=== PATIENT | male | born 1985 | race Caucasian/White ===

== ENCOUNTER 2023-10-06 22:49 | Emergency (ER) | payer OTHER, SELFPAY ==
[2023-10-06] VITALS (8 sets, daily range): BP systolic 125–137; BP diastolic 82–92; PULSE 102–117; TEMP 36.8; O2SAT 98; BMI 25.0
--- NOTE | 2023-10-06 22:56 | ECG_ITS ---
[facility] Test Date: 2023-10-06 Pat Name: YASH JO Department: Room: - Gender: Male Press Loader: : 1985 Requested By: 1030 Order Number: [id number] Reading MD: CHAO RUELAS Measurements Intervals [place] Rate: 114 P: 69 MA: 162 QRS: 80 QRSD: 84 T: 66 QT: 326 QTc: 394 Interpretive Statements 1120 Sinus tachycardia 0102 ARTIFACT PRESENT 9140 abnormal rhythm ECG Electronically Signed On 10-07-2023 7:01:39 EDT by CHAO RUELAS
--- NOTE | 2023-10-06 22:58 | ED.PSYCH1 ---
HPI - Psych General Chief Complaint: Psychiatric Symptoms Stated Complaint: SUICIDAL Time Seen by Provider: 10/06/23 22:52 History of Present Illness HPI Narrative: 38-year-old male presents to the emergency department for suicidal thoughts. He ran from the police and they eventually caught him and they were going to take him to senior living and he told them that he was going to kill himself. He does not admit to doing anything to harm himself tonight. He is not forthcoming with information. He tells me he is going through a lot. Related Data Allergies Allergy/AdvReac Type Severity Reaction Status Date / Time No Known Drug Allergies Allergy Verified 10/06/23 22:58 Review of Systems ROS Narrative Not obtainable, not cooperative Exam Narrative Exam Narrative: Nurses note and vital signs reviewed and patient is not hypoxic. General: The patient appears in no apparent respiratory distress. He appears anxious. Skin: Warm, dry, no pallor noted. There is no rash noted. Head: Normocephalic, atraumatic Eye: Normal conjunctiva, no drainage, EOMI. PERRL Ears, Nose, Mouth, and Throat: oral mucosa is moist. Nares patent. Cardiovascular: Regular Rate and Rhythm Respiratory: Patient is in no distress, no accessory muscle use, lungs are clear to auscultation, no wheezing, rales or rhonchi Back: non-tender GI: Soft and nontender Musculoskeletal: No deformities. All joints have good range of motion Neurological: Awake and alert. Occasionally he has mumbling speech. Psychiatric: Not fully cooperative Constitutional Vital Signs, click to edit/add: Last Vital Signs Temp 98.2 F 10/06/23 22:53 Pulse 102 H 10/06/23 23:40 Resp 18 10/06/23 23:20 BP 125/82 10/06/23 23:07 Pulse Ox 98 10/06/23 22:54 O2 Del Method Room Air 10/06/23 22:53 Course Vital Signs Vital signs: Vital Signs Temperature 98.2 F 10/06/23 22:53 Pulse Rate 116 H 10/06/23 22:53 Respiratory Rate 22 H 10/06/23 22:53 Blood Pressure 137/92 H 10/06/23 22:53 Pulse Oximetry 98 10/06/23 22:53 Oxygen Delivery Method Room Air 10/06/23 22:53 Temperature 98.2 F 10/06/23 22:53 Pulse Rate 102 H 10/06/23 23:40 Respiratory Rate 18 10/06/23 23:20 Blood Pressure 125/82 10/06/23 23:07 Pulse Oximetry 98 10/06/23 22:54 Oxygen Delivery Method Room Air 10/06/23 22:53 MDM - Psych MDM Narrative Medical decision making narrative: Blood work is negative including an immeasurable alcohol level. We have contacted mental health services and the police are here with the patient. We have agreed that the patient will be taken to senior living with a suicide watch. Differential Diagnosis Differential diagnosis: Likely suicidal ideation, depression and acute anxiety Lab Data Attestation: I reviewed the patient's lab results. Labs: Lab Results 10/06/23 Range/Units 23:08 WBC 9.5 (4.0-11.0) 10^3/uL RBC 5.00 (4.70-6.10) 10^6/uL Hgb 15.4 (14.0-18.0) g/dL Hct 44.6 (42.0-54.0) % MCV 89.2 (80.0-94.0) fL MCH 30.8 (25.9-34.0) pg MCHC 34.5 (29.9-35.2) g/dL RDW 12.4 (11.0-15.0) % Plt Count 250 (150-450) 10^3/uL MPV 9.9 (9.5-13.5) fL Neut % (Auto) 68.3 (43.0-75.0) % Lymph % (Auto) 23.2 (20.5-60.0) % Mower % (Auto) 7.1 (1.7-12.0) % Eos % (Auto) 0.7 L (0.9-7.0) % Baso % (Auto) 0.6 (0.2-2.0) % Neut # (Auto) 6.5 (1.4-6.5) 10^3/uL Lymph # (Auto) 2.2 (1.2-3.8) 10^3/uL Mower # (Auto) 0.7 (0.3-0.8) 10^3/uL Eos # (Auto) 0.1 (0.0-0.7) 10^3/uL Baso # (Auto) 0.1 (0.0-0.1) 10^3/uL Abs Immat Gran (auto) 0.01 (0.00-0.03) 10^3/uL Imm/Tot Granulo (auto) 0.1 (0.0-0.5) % Sodium 140 (136-145) mmol/L Potassium 3.8 (3.5-5.1) mmol/L Chloride 101 (98-107) mmol/L Carbon Dioxide 26.4 (21.0-32.0) mmol/L Anion Gap 16.4 BUN 27.0 H (7.0-18.0) mg/dL Creatinine 1.25 (0.70-1.30) mg/dL Est GFR ( Amer) >60 (>=60) Est GFR (Non-Af Amer) >60 (>=60) BUN/Creatinine Ratio 21.6 Glucose 115 H (74-106) mg/dL Calcium 9.2 (8.5-10.1) mg/dL Salicylates 3.0 (<=19.9) mg/dL Acetaminophen <2.0 L (10.0-30.0) ug/mL Ethanol Quant <3 mg/dL ECG Data Attestation: I personally reviewed and interpreted this ECG as follows: (EKG on my interpretation shows sinus rhythm with a rate of 114 and no acute change.) Discharge Plan Discharge Stand Alone Forms: Portal Instructions Chief Complaint: Psychiatric Symptoms Clinical Impression: Suicidal ideation Patient Disposition: Home, Self-Care Time of Disposition Decision: 00:00 Condition: Good Mode of Transportation: Private Vehicle Print Language: Peruvian Instructions: Suicide Prevention (ED) Referrals: Physician,Non-Staff, MD [Primary Care Provider] - 1 week
[2023-10-06 23:13] LABS: Basophils Absolute Auto 0.1 10^3/uL (0.0-0.1); Basophils Percent Auto 0.6 % (0.2-2.0); Eosinophils Absolute Auto 0.1 10^3/uL (0.0-0.7); Eosinophils Percent Auto 0.7 % (0.9-7.0); Hematocrit 44.6 % (42.0-54.0); Hemoglobin 15.4 g/dL (14.0-18.0); Immature Granulocytes Abs Auto 0.01 10^3/uL (0.00-0.03); Immature Granulocytes Pct Auto 0.1 % (0.0-0.5); Lymphocytes Absolute Auto 2.2 10^3/uL (1.2-3.8); Lymphocytes Percent Auto 23.2 % (20.5-60.0); Mean Corpuscular HGB Conc 34.5 g/dL (29.9-35.2); Mean Corpuscular Hemoglobin 30.8 pg (25.9-34.0); Mean Corpuscular Volume 89.2 fL (80.0-94.0); Mean Platelet Volume 9.9 fL (9.5-13.5); Monocytes Absolute Auto 0.7 10^3/uL (0.3-0.8); Monocytes Percent Auto 7.1 % (1.7-12.0); Neutrophils Absolute Auto 6.5 10^3/uL (1.4-6.5); Neutrophils Percent Auto 68.3 % (43.0-75.0); Platelet Count 250 10^3/uL (150-450); Red Cell Distribution Width 12.4 % (11.0-15.0); White Blood Count 9.5 10^3/uL (4.0-11.0)
[2023-10-06 23:25] LABS: Anion Gap 16.4; BUN Creatinine Ratio 21.6; Calcium 9.2 mg/dL (8.5-10.1); Carbon Dioxide 26.4 mmol/L (21.0-32.0); Chloride 101 mmol/L (98-107); Estimated GFR (African America >60 (>=60); Estimated GFR (Non-African Ame >60 (>=60); Ethanol <3 mg/dL; Glucose 115 mg/dL (74-106); Potassium 3.8 mmol/L (3.5-5.1); Sodium 140 mmol/L (136-145)
[2023-10-06 23:32] LABS: Acetaminophen <2.0 ug/mL (10.0-30.0)
== END 2023-10-07 00:07 ==
PROVIDERS: Emergency Provider Emergency Medicine
DX: R45.851 Suicidal ideations (principal)
CPT/HCPCS: 36415; 80048; 80179; 80307; 80320; 80329; 81001; 85025; 93005; 99284

== ENCOUNTER 2025-02-18 17:40 | Emergency (ER) | payer OTHER, SELFPAY ==
[2025-02-18] VITALS (43 sets, daily range): BP systolic 101–156; BP diastolic 65–103; PULSE 80–123; TEMP 36.9; O2SAT 92–100; BMI 20.8
--- NOTE | 2025-02-18 17:46 | ECG_ITS ---
[facility] Test Date: 2025-02-18 Pat Name: YASH JO Department: Room: - Gender: Male Retail Support Specialist: : 1985 Requested By: Order Number: [id number] Reading MD: FANTA MELCHOR M.D. Measurements Intervals [place] Rate: 87 P: 77 IA: 162 QRS: 87 QRSD: 88 T: 65 QT: 358 QTc: 403 Interpretive Statements 1100 Sinus rhythm 2420 RSR (QR) in lead V1/V2, consistent with right ventricular conduction delay 9130 borderline ECG Compared to ECG 10/06/2023 23:05:50 Sinus tachycardia no longer present Electronically Signed On 02-18-2025 20:25:22 EST by FANTA MELCHOR M.D.
--- NOTE | 2025-02-18 17:47 | ED.GENADUL1 ---
HPI HPI - General Adult General Chief complaint: Overdose Stated complaint: overdose Time Seen by Provider: 02/18/25 17:45 History of Present Illness HPI narrative: 39-year-old male presented to the emergency department for taking too much hydroxyzine. He is unable to provide any history. All the initial history is obtained from the paramedics who transported him here. They reported that his family told them he has been taking more than he was prescribed over the last few days and he has been drowsy. They could not ascertain intent. No further history is obtainable. Related Data Allergies Allergy/AdvReac Type Severity Reaction Status Date / Time No Known Drug Allergies Allergy Verified 02/18/25 17:44 Review of Systems ROS Narrative Not obtainable PFSH PFSH Social History Little interest or pleasure in doing things: not at all Feeling down, depressed, or hopeless: not at all Exam Narrative Exam Narrative: Nurses note and vital signs reviewed General:The patient appears no acute respiratory distress. He is quite drowsy Skin:Warm, dry, no pallor noted.There is no rash noted. Head:Normocephalic, atraumatic Eye: Normal conjunctiva, no drainage Ears, Nose, Mouth, and Throat: oral mucosa is moist. Nares patent. Cardiovascular:Regular Rate and Rhythm Respiratory:Patient is in no distress, no accessory muscle use, lungs are clear to auscultation, no wheezing, rales or rhonchi Back:non-tender GI: Soft and nontender Musculoskeletal: The patient has no evidence of calf tenderness, no pitting edema, symmetrical pulses noted bilaterally Neurological: He is sleeping. He will say a few words when spoken to. Psychiatric: Not uncooperative Constitutional Vital Signs, click to edit/add: Last Vital Signs Temp 98.4 F 02/18/25 17:44 Pulse 88 02/18/25 17:44 Resp 18 02/18/25 17:44 BP 106/74 02/18/25 17:44 Pulse Ox 98 02/18/25 17:44 O2 Del Method Room Air 02/18/25 17:44 Course Vital Signs Vital signs: Vital Signs Temperature 98.4 F 02/18/25 17:44 Pulse Rate 88 02/18/25 17:44 Respiratory Rate 18 02/18/25 17:44 Blood Pressure 106/74 02/18/25 17:44 Pulse Oximetry 98 02/18/25 17:44 Oxygen Delivery Method Room Air 02/18/25 17:44 Temperature 98.4 F 02/18/25 17:44 Pulse Rate 88 02/18/25 17:44 Respiratory Rate 18 02/18/25 17:44 Blood Pressure 106/74 02/18/25 17:44 Pulse Oximetry 98 02/18/25 17:44 Oxygen Delivery Method Room Air 02/18/25 17:44 Medical Decision Making MDM Narrative Medical decision making narrative: Tests are ordered and the patient signed out to Dr. Killian at change of shift. Differential Diagnosis Differential Diagnosis: Unintentional overdose, intentional overdose ECG Data Attestation: I personally reviewed and interpreted this ECG as follows: (EKG on my interpretation shows sinus rhythm with rate of 87 and no acute change) Discharge Plan Discharge Patient Disposition: Still a Patient
[2025-02-18 17:57] LABS: Hematocrit 37.9 % (42.0-54.0); Hemoglobin 12.8 g/dL (14.0-18.0); Immature Granulocytes Abs Auto 0.03 10^3/uL (0.00-0.03); Immature Granulocytes Pct Auto 0.5 % (0.0-0.5); Lymphocytes Absolute Auto 1.9 10^3/uL (1.2-3.8); Mean Corpuscular HGB Conc 33.8 g/dL (29.9-35.2); Mean Corpuscular Hemoglobin 29.1 pg (25.9-34.0); Mean Corpuscular Volume 86.1 fL (80.0-94.0); Platelet Count 251 10^3/uL (150-450); Red Blood Count 4.40 10^6/uL (4.70-6.10); White Blood Count 6.2 10^3/uL (4.0-11.0)
--- OUTSIDE RECORDS SUMMARY | 2025-02-18 18:08 | XMS_ITS | Clinical Summary ---
Author Organization [facility] Address [address] [place] [address] Care Team Providers Care Filter Worker Name Role Phone Unavailable Primary Care Provider Unavailabl e Social History Tobacco UseTypesPacks/DayYears UsedDateSmoking Tobacco: Never AssessedSex and Gender InformationValueDate RecordedSex Assigned at BirthNot on fileLegal Sex Male05/05/2022 8:13 PM EDTGender IdentityNot on fileSexual OrientationNot on file Plan of Treatment Not on file
--- OUTSIDE RECORDS SUMMARY | 2025-02-18 18:08 | XMS_ITS | Clinical Summary ---
Author Organization [facility] Address [address] [place] [address] Phone Care Team Providers Care Shop Superintendent Name Role Phone Unavailable Primary Care Provider Unavailabl e Social History Tobacco UseTypesPacks/DayYears UsedDateSmoking Tobacco: Never AssessedSex and Gender InformationValueDate RecordedSex Assigned at BirthNot on fileLegal Sex Male01/15/2022 5:57 PM ESTGender IdentityNot on fileSexual OrientationNot on file Plan of Treatment Not on file
--- OUTSIDE RECORDS SUMMARY | 2025-02-18 18:08 | XMS_ITS | Patient Health Record ---
Author Organization [facility] Address [address], [place] [id number] Care Team Providers Care Obstetrician/Gynecologist Name Role Phone Tariq King Unavailable [phone] Allergies Allergen (clinical drug ingredient) Drug/Non Drug Allergy documented on EMR Reaction Allergy Type Onset Date Status Milk-related CompoundsComments: GI ISSUESDrug AllergyActive Reason For Referral No Information Medications Medication SIG (Take, Route, Frequency, Duration) Notes Start Date End Date Status Multivitamin - Tablet 1 tablet Orally Once a day ActivetraZODone HCl 100 MG Tablet1 tablet at bedtime Orally Once a day; Duration: 30 daysActivebusPIRone HCl 10 MG Tablet1 tablet Orally Three times a day; Duration: 30 daysActiveGabapentin 300 MG Capsule1 capsule Orally Once a day; Duration: 30 daysOARRS reviewed without issue07/07/2022ctive Cyclobenzaprine HCl 10 MG Tablet1 tablet as needed Orally Once a day; Duration: 30 daysActiveTriamcinolone Acetonide 0.1 % Cream1 application to affected area Externally Twice a day; Duration: ctive Social History Tobacco Use: Social History Observation Description Date Details (start date - stop date) Never Smoker NA - NA Sex Assigned At : Social History Observation Description Sex Assigned At Male Social History Household:Social InfoQuestionAnswerNotesHouseholdNumber of adults in household:1 Drugs/Alcohol/Caffeine:Social InfoQuestionAnswerNotesDrugsHave you used drugs other than those for medical reasons in the past 12 months?YesOpioidsCaffeine Intake:1-2 cups per dayTobacco Use:Social InfoQuestionAnswerNotesTobacco Use/SmokingTobacco use:nonsmokerTobacco use other than smoking:Are you an other tobacco user?YesVapeAdditional DetailsCategorySocial InfoOptionsDetails Miscellaneous:Occupation:unemployedCulture/Language BarrierNoEducation Level Grade 7-12Barriers to LearningNoneLearning PreferenceDoing or practicing , Watching a video, Reading, Talking in a small groupHow often do you need to have someone help you read instructionsNeverSafetyPatient feels safe in relationships YesDrugs/Alcohol/Caffeine:Do you drink alcohol?Socially Problems Problem Type SNOMED Code ICD Code Onset Dates Problem Status W/U Status Risk Notes Problem Anxiety (49058975) Anxiety (F41.9) ActiveconfirmedProblemInsomnia (645193993)Insomnia, unspecified type (G47.00) ActiveconfirmedProblemNeck pain (18222281)Neck pain, chronic (723.1) (M54.2) Activeconfirmed Comment:Musculoskeletal in nature, no neuro deficit. Ongoing for 8 years per patient, has full ROM on exam No muscle atrophy present Also with reports of thoracic burning that radaites up over his head. Pt feels this is infectious, advised possibe more rheumatological Agreed to ID referal at this time. Discussed case in full with collaborating physician, ProblemSuicidal ideation (0993175)Suicidal ideation (R45.851)Activeconfirmed Comment:Pt became tearful and frustrated during exam Stated he just wants to end things as he's tired of living this way; has written goodbye's to his children Admitted to having a plan, would not elaborate further to provider. Discussed treatment options for his neck pain and his expectations agreed he ritika not harm himself is there was a light at the end of the tunnel , ProblemNeck pain (81236161)Neck pain, musculoskeletal (723.1) (723.1)Active confirmedComment:Minor changes on plain films. With associated muscle spasms, paresthesias. He insists on getting an MRI. I discussed with him the option of giving him a referral (neuro, ortho) first but he opts for first getting the MRI. Meanwhile, continue the cyclobenzaprine prn and will try fioricet to see if that helps. Follow up after the MRI.,ProblemTemporomandibular joint disorder (44427462)TMJ (temporomandibular joint disorder) (524.60) (524.60)Active confirmedComment:Jaw films.,ProblemLumbar radiculopathy (352535804)Acute left lumbar radiculopathy (M54.16)Activeconfirmed Comment:With L4,5 and L5, S1 disc space narrowing and sciatica; some motor weakness and diminished LEFT ankle DTR; needs an MRI to see if he has a herniated disc, will concurrently refer to Pain Mgmt for nerve root injections as I think those will help. Rx hydrocodone every 12-24 hrs, start gabapentin and continue diclofenac, skelaxin., ProblemInsomnia (364090643)Cannot sleep (G47.00)ActiveconfirmedComment:STOP doxepin; START zolpidem 5-10mg QHS,Description:InsomniaProblemAnxiety state (296838552)Anxiety state (F41.1)ActiveconfirmedComment:Related in part, to his neck pain, insomnia. Will try the doxepin for sleep.,ProblemMyalgia (39570528) Myalgia (M79.10)ActiveconfirmedProblemSpasmodic torticollis (36932800) Torticollis, spasmodic (333.83) (333.83)ActiveconfirmedComment:Discussed options; he requests referral to neurology, rather than a muscle relaxer., Plan Of Treatment No Information Insurance Providers Payer Name Payer Address Payer Phone Subscriber Number Group Number Insured Name Patient Relationship to Insured Coverage Start Date Coverage End Date [facility] [address] [place] [address] [id number] Arnoldo Johnson - patient is the [id number] 2021Medicaid [facility] [place] [id number], MichaelSelf - patient is the insured 2021[employer]amount [facility] [address] [place] [phone] [id number], MichaelSelf - patient is the [id number] 2011 2014Medicaid[address] [place], [place] [id number], MichaelSelouisasusannah - patient is the [id number] Medical (General) History Medical History History ICD Code No Known Problems Surgical History Surgery Date(Month/Year) lumbar surgery finger surgery
--- OUTSIDE RECORDS SUMMARY | 2025-02-18 18:08 | XMS_ITS | Clinical Summary ---
Author Organization [facility] Address [id number] [address] [place] [address] Care Team Providers Care Seed Sales Manager Name Role Phone No Pcp, No Pcp Primary Care Provider Unavailabl e Allergies Active AllergyReactionsCriticalityNoted ApajHaywdsutFhcphvw46/26/2016 Medications * This document contains information received from the source organization and may not represent a complete record from that organization. MedicationSigDispense QuantityRefillsLast FilledStart DateEnd DateStatus CEPHalexin (KEFLEX) 500 mg capsule Take 500 mg by mouth 2 (two) times a day.Active sulfamethoxazole-trimethoprim (BACTRIM DS) 800-160 mg per tablet Take 1 tablet by mouth 2 (two) times a day.Active Active Problems ProblemNoted DateDiagnosed DatePsychotic vfnrakjb41/26/2016Alcohol dependence 07/17/2015 Family History Medical HistoryRelationNameCommentsDiabetesFatherRelationNameStatusComments Father Social History Tobacco UseTypesPacks/DayYears UsedDateSmoking Tobacco: Every DayCigarettes Smokeless Tobacco: Never Tobacco Cessation:Ready to Q uit: Not Asked; Counseling Given: Not Answered Alcohol UseStandard Drinks/WeekCommentsYes0 (1 standard drink = 0.6 oz pure alcohol)1-2 16oz/dayChildcareAnswerDate PdgbwkmkUxkvpvmsaPvhspqg78/12/2019 EmploymentAnswerDate IhcotechRmufrjxpvwGqsqzto37/12/2019Hunger ScreeningAnswer Date RecordedWithin the past 12 months we worried whether our food would run out before we got money to buy more.Never True02/19/2023Within the past 12 months the food we bought just didn't last and we didn't have money to get more.Never True3Purpose - LifeAnswerDate RecordedPurpose and direction in life Tktczkd4204/03/2020ex and Gender InformationValueDate RecordedSex Assigned at BirthNot on fileLegal SnfOuew4709/26/2014 11:24 AM EDTGender IdentityNot on file Sexual OrientationNot on file Last Filed Vital Signs Vital SignReadingTime TakenCommentsBlood Fkrbkpqq883/7802/19/2023 11:50 AM EST Lpivl471202/19/2023 11:50 AM USPCgedrxkbczw95.3 ??C (99.2 ??F)02/19/2023 11:50 AM ESTRespiratory Mjuz1262 11:50 AM ESTOxygen Mptpwyirtj29%02/19/2023 11:50 AM ESTInhaled Oxygen Concentration--Fkapfj95.7 kg (153 lb 9.6 oz)02/19/2023 11:50 AM DMGXvrjom385.1 cm (5' 5 )02/19/2023 11:50 AM ESTBody Mass Index25.56 02/19/2023 11:50 AM EST Plan of Treatment Health MaintenanceDue DateLast DoneCommentsDepression Gfwchhcio10/17/1997Adult BMI Rjfjeusuj59Tobacco Qnuruckdi81Influenza Hdwypdl9410/22/2024DTaP,Tdap and Td Vaccines (2 - Tdap) Medical Devices Not on file Insurance [address] [place] [address] * Guarantor: [facility] TypeRelation to PatientDate of PhoneBilling AddressCorporateOther [address] [place] [address] Care Teams Team MemberRelationshipSpecialtyStart DateEnd Date No Pcp, No Pcp SUE Sánchez [address] [facility] Srevfrjs54/9/21
--- OUTSIDE RECORDS SUMMARY | 2025-02-18 18:09 | XMS_ITS | CCD ---
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 Indra Henry DO 05/06/24 Final resultNormalAccess Hospital DaytonXR Chest 2 Viewson 05-06-2024 No acute abnormality. [facility] RIS CONSOLIDATEDEXAMINATION: TWO XRAY VIEWS OF THE CHEST 05/06/2024 10:44 am COMPARISON: 03/09/2024 HISTORY: ORDERING SYSTEM PROVIDED HISTORY: cough TECHNOLOGIST PROVIDED HISTORY: cough FINDINGS: The lungs are clear. Normal cardiomediastinal silhouette. No pleural effusion or pneumothorax. No acute osseous abnormality. [facility] CONSOLIDATEDIdnra Henry DO - 05/06/2024 EXAMINATION: TWO XRAY VIEWS OF THE CHEST 05/06/2024 10:44 am COMPARISON: 03/09/2024 HISTORY: ORDERING SYSTEM PROVIDED HISTORY: cough TECHNOLOGIST PROVIDED HISTORY: cough FINDINGS: The lungs are clear. Normal cardiomediastinal silhouette. No pleural effusion or pneumothorax. No acute osseous abnormality. IMPRESSION: No acute abnormality. [facility] HospitalRadiology Study observation (narrative)[facility] HospitalXR Chest 2 ViewsOrdered By: Indra Henry on [id number] Giles Memorial Hospital Work Phone: ProtoporphyqueZincon [phone] to Heme Ratio44 umolZPP/molHemNormal0-69MerTorrance Memorial Medical CenterComment on above:Result Comment: (NOTE) INTERPRETIVE INFORMATION: Zinc Protoporphyrin (ZPP) WholeBld Ratio This test was performed on the ProtoFluor Z system manufactured by [employer]. The result is not comparable to results obtained from extraction-based methods or from the [employer] ZPP system. The test was developed and its performance characteristics determined by [facility]. It has not been cleared or approved by the U.S. Food and Drug Administration. This test was performed in a CLIA-certified laboratory and is intended for clinical purposes. Performed By: [facility] [address] [place] [address] Lumber Tailer: Maged Novak MD, PhD CLIA Number: [id number] By: #### TROPI, CDP, BMP #### [facility] [place] [address] Coach Builder: Eliecer Dozier [facility] SEMINOLEium, Bloodon [id number], Blood<1.0 Normal<=5.0Access Hospital DaytonComment on above:Result Comment: (NOTE) INTERPRETATION INFORMATION: Cadmium, Blood Elevated results may be due to skin or collection-related contamination, including the use of a noncertified metal-free collection/transport tube. If contamination concerns exist due to elevated levels of blood cadmium, confirmation with a second specimen collected in a certified metal-free tube is recommended. Blood cadmium levels can be used to monitor acute toxicity and in combination with cadmium urine and B-2 microglobulin is the preferred method for monitoring occupational exposure. Symptoms associated with cadmium toxicity vary based upon route of exposure and may include tubular proteinuria, fever, headache, dyspnea, chest pain, conjunctivitis, rhinitis, sore throat and cough. Ingestion of cadmium in high concentration may cause vomiting, diarrhea, salivation, cramps, and abdominal pain. This test was developed and its performance characteristics determined by [facility]. It has not been cleared or approved by the [place] Food and Drug Administration. This test was performed in a CLIA certified laboratory and is intended for clinical purposes. Performed By: [facility] [address] [place] [address] Lumber Tailer: Maged Novak MD, PhD [facility] Number: [id number] By: #### CREG, PSAS, BUN, CDP #### [address] [address] Coach Builder: Eliecer Dozier MD #### ALEBREE, AZP, ACADM #### [address] [id number] Coach Builder: Pato Priest, Urineon [id number], Ur /vol<1.0 Normal0.0-1.0Access Hospital DaytonComment on above:Result Comment: (NOTE) INTERPRETATION INFORMATION: Cadmium, Urine Urine cadmium levels can be used to assess cadmium body burden. In chronic exposures, the kidneys are the primary target organ. Symptoms associated with cadmium toxicity vary based upon route of exposure and may include tubular proteinuria, fever, headache, dyspnea, chest pain, conjunctivitis, rhinitis, sore throat and cough. Ingestion of cadmium in high concentration may cause vomiting, diarrhea, salivation, cramps, and abdominal pain. This test was developed and its performance characteristics determined by [facility]. It has not been cleared or approved by the US Food and Drug Administration. This test was performed in a CLIA certified laboratory and is intended for clinical purposes.Performed By: #### TROPI, CDP, BMP #### [facility] [address] [place] [address] Coach Builder: BRADFORD Auadmium, Urine /24hNot ApplicableNormal0.0-3.2 Access Hospital DaytonComment on above:Performed By: #### TROPI, CDP, BMP #### [facility] [address] [place] [address] Coach Builder: Eliecer Madoff, MDCadmium,Ur ratio/crNot ApplicableNormal0.0-3.2 Access Hospital DaytonComment on above:Result Comment: (NOTE) Unable to accurately calculate the creatinine normalized result due to a low per volume result.Performed By: #### ANALILIA REN, BMP #### [facility] [address] [place] [address] Coach Builder: Kyra Au Ur/24hNot [id number] Access Hospital DaytonComment on above:Result Comment: (NOTE) Performed By: [facility] [address] [place] [address] Lumber Tailer: Maged Novak MD, PhD CLIA Number: [id number] By: #### ANALILIA REN, BMP #### [facility] [address] [place], [place] [phone] Coach Builder: Kyra Au Ur/vol12 mg/dLNormalAccess Hospital DaytonComment on above:Performed By: #### ANALILIA REN, BMP #### [facility] [address] [place], [place] [phone] Coach Builder: Navi Au,Bloodon 94-97-1027Mcag<2.0Normal<=4.9Access Hospital DaytonComment on above:Result Comment: (NOTE) INTERPRETIVE INFORMATION: Lead, Blood (Venous) Analysis performed by Inductively Coupled Plasma-Mass Spectrometry (ICP-MS). Elevated results may be due to skin or collection-related contamination, including the use of a noncertified lead-free tube. If contamination concerns exist due to elevated levels of blood lead, confirmation with a second specimen collected in a certified lead-free tube is recommended. Information sources for blood lead reference intervals and interpretive comments include the CDC's Childhood Lead Poisoning Prevention: Recommended Actions Based on Blood Lead Level and the Adult Blood Lead Epidemiology and Surveillance: Reference Blood Lead Levels (BLLs) for Adults in the [place] Thresholds and time intervals for retesting, medical evaluation, and response vary by state and regulatory body. Contact your State Department of Health and/or applicable regulatory agency for specific guidance on medical management recommendations. This test was developed and its performance characteristics determined by [facility]. It has not been cleared or approved by the U.S. Food and Drug Administration. This test was performed in a CLIA-certified laboratory and is intended for clinical purposes. Group Concentration Comment Children 3.5-19.9 ug/dL Children under the age of 6 years are the most vulnerable to the harmful effects of lead exposure. Environmental investigation and exposure history to identify potential sources of lead. Biological and nutritional monitoring are recommended. Follow-up blood lead monitoring is recommended. 20-44.9 ug/dL Lead hazard reduction and prompt medical evaluation are recommended. Contact a Pediatric Environmental Health Specialty Unit or poison control center for guidance. Greater than Critical. Immediate medical 44.9 ug/dL evaluation, including detailed neurological exam is recommended. Consider chelation therapy when symptoms of lead toxicity are present. Contact a Pediatric Environmental Health Specialty Unit or poison control center for assistance. Adult 5-19.9 ug/dL Medical removal is recommended for women or those who are trying or may become . Adverse health effects are possible. Reduced lead exposure and increased blood lead monitoring are recommended. 20-69.9 ug/dL Adverse health effects are indicated. Medical removal from lead exposure is required by OSHA if blood lead level exceeds 50 ug/dL. Prompt medical evaluation is recommended. Greater than Critical. Immediate medical 69.9 ug/dL evaluation is recommended. Consider chelation therapy when symptoms of lead toxicity are present. Performed By: [facility] [address] [place] [address] Lumber Tailer: Maged Novak MD, PhD CLIA Number: [id number] By: #### CREG, PSAS, BUN, CDP #### [facility] [place] [phone] Coach Builder: Eliecer Dozier MD #### MONISHA FRANCIS, GABRIELAM #### [facility] [address] [place] [address] Coach Builder: Tomas Diaz MDBeta-2 Microglob,Uon [id number]-2 Microg ug/g c62 ug/g CRTNormal0-300[facility] Hospitalcy [facility] Medical CenterComment on above: Performed By: #### ANALILIA REN, BMP #### [facility] [address] [place] [address] Coach Builder: Eliecer Dozier MDBeta-2 Microglob,U8 ug/LNormal0-300Access Hospital DaytonComment on above:Performed By: #### ANALILIA REN, BMP #### [facility] [address] [place], [place] [phone] Coach Builder: BRADFORD Aureatinine [Mass/Vol]13 mg/dLNormalAccess Hospital DaytonComment on above:Result Comment: (NOTE) Performed By: [facility] [address] [place] [address] Lumber Tailer: Maged Novak MD, PhD CLIA Number: [id number] By: #### ANALILIA REN, BMP #### [facility] [address] [place], [place] [phone] Coach Builder: Nithya AuH (Bld)6.0 [pH][facility] Shelby HospitalComment on above:Performed By: #### ANALILIA REN, BMP #### [facility] [address] [place] [address] Coach Builder: Eliecer Dozier MDPYEtnb-8-Hkqvmwblawjfb Random Urineon 03-11-2024 Beta 2 Microglobulin ug/g MNQ31Eyv SecMetroHealth Main Campus Medical CenterBeta-2 Microglob.,U8 ug/L 0 - 300 ug/LBon Secours [facility] HospitalAblative Solutions HealthCreatinine (24H U) [Mass/Vol]13 mg/dLBon Secours Berger HospitalComment on above:(NOTE) Performed By: [facility] [address] [place] [address] Lumber Tailer: Maged Novak MD, PhD CLIA Number: [id number] pH (U)6.0 [pH][facility] Hospitaly HealthBon [facility] Hospitaly HealthBUNon 03-09-2024 Urea nitrogen [Mass/Vol]15 mg/dL6 - 20 mg/dLBon Secours [facility] Hospitaly HealthBUN (Urea N) on 18-55-1371Lupn nitrogen [Mass/Vol]15 mg/dLNormal6-20Access Hospital DaytonComment on above:Performed By: #### CREG, PSAS, BUN, CDP #### [facility] [address] [place] [address] Coach Builder: Eliecer Dozier MD #### PENNY, REHANP, GABRIELAM #### [facility] [address] [place] [address] Coach Builder: Tomas Diaz [facility] with Auto Differentialon [id number] (Bld) [#/Vol]0.06 10*3/uLBon [facility] Centerours Berger HospitalBasophils/100 WBC (Bld)1 %0 - 2 %[facility] HospitalEosinophils (Bld) [#/Vol]0.10 10*3/uLBon Secours Berger HospitalEosinophils/100 WBC (Bld)1 %1 - 4 %[facility] HospitalErythrocyte distribution width (RBC) [Ratio]12.1 %11.8 - 14.4 %[facility] Hematocrit (Bld) [Volume fraction]43.5 %40.7 - 50.3 %Bon SecMetroHealth [facility] Campus Medical Center Hemoglobin (Bld) [Mass/Vol]14.9 g/dL13.0 - 17.0 g/dLBon [facility] Immature granulocytes (Bld) [#/Vol]0.05 10*3/uLBon SecMetroHealth Main Campus Medical CenterImmature granulocytes/100 WBC (Bld)0 %0Bon SecMetroHealth Main Campus Medical CenterInterpretation and review of laboratory resultsAbnormalBon SecMetroHealth Main Campus Medical CenterLymphocytes/100 WBC (Bld)14 %Low24 - 43 %Bon SecTrios Healthy Kettering HealthLymphocytes/100 WBC (Bld)1.66 %Bon SecSelect Medical TriHealth Rehabilitation HospitalH (RBC) [Entitic mass]28.9 pg25.2 - 33.5 pgBon SecSelect Medical TriHealth Rehabilitation HospitalHC (RBC) [Mass/Vol]34.3 g/dL28.4 - 34.8 g/dLBon [facility] Orr[facility] HospitalMCV (RBC) [Entitic vol]84.3 fL82.6 - 102.9 fLBon [facility] HospitalMonocytes/100 WBC (Bld)5 %3 - 12 %Bon SecMetroHealth Main Campus Medical CenterMonocytes/100 WBC (Bld)0.56 %Bon [facility] HealthNeutrophils/100 WBC (Bld)79 %High36 - 65 %Bon [facility] HospitalNucleated RBC/100 WBC (Bld) [Ratio]0.0 %0.0 per 100 WBCBon [facility] Orrville HospitalPlatelet mean volume (Bld) [Entitic vol]9.5 fL8.1 - 13.5 fLBon [facility] HealthPlatelets (Bld) [#/Vol]275 10*3/uLBon [facility] Orrville HospitalRBC (Bld) [#/Vol]5.16 10*6/uL4.21 - 5.77 m/uLBon [facility] HospitalSegmented neutrophils/100 WBC (Bld)9.24 %HighBon [facility] Orrville HospitalWBC other (Bld) [#/Vol]11.7HighBon [facility]rville HospitalBon [facility] HospitalCBC with Diffon 12-46-5621Pvu. Basophil0.06 k/uLNormal0.00-0.20[facility] Comment on above:Performed By: #### CREG, PSAS, BUN, CDP #### [facility] [address] [place] [address] Coach Builder: Eliecer Dozier MD #### MONISHA FRANCIS ACADM #### [facility] [address] [place] [address] Coach Builder: Yessenia Priest.Imm.Granulocyte0.05 k/uLNormal0.00-0.30Access Hospital DaytonComment on above:Performed By: #### CREG, PSAS, BUN, CDP #### [facility] [address] [place] [address] Coach Builder: Eliecer Dozier MD #### ALEBREE AZP, ACADM #### [facility] [address] [place], [place] [id number] Coach Builder: Yessenia Priest.Neutrophil (Seg)9.24 k/uLHigh1.50-8.10Access Hospital DaytonComment on above:Performed By: #### CRESanjana, PSAS, BUN, CDP #### [facility] [address] [place] [address] Coach Builder: Eliecer Dozier MD #### ALEREHAN GIRONP, ACADM #### [facility] [address] [place], [place] [id number] Coach Builder: Tomas Diaz MDBasophils/100 WBC (Bld)1 %Normal0-2MPresbyterian Intercommunity HospitalComment on above:Performed By: #### ITALIA PSAS, BUN, CDP #### [facility] [address] [place] [address] Coach Builder: Eliecer Dozier MD #### MONISHA FRANCIS, ACADM #### [facility] [address] [place], [place] [id number] Coach Builder: Tomas Diaz MDEosinophils (Bld) [#/Vol]0.10 10*3/uLNormal 0.00-0.44Access Hospital DaytonComment on above:Performed By: #### CREG, PSAS, BUN, CDP #### [facility] [address] [place] [address] Coach Builder: Eliecer Dozier MD #### REHAN FRANCISP, ACADM #### [facility] [address] [place], [place] [id number] Coach Builder: Tomas Diaz MDEosinophils/100 WBC (Bld)1 %Normal1-4Access Hospital DaytonComment on above:Performed By: #### CREG, PSAS, BUN, CDP #### [facility] [address] [place] [address] Coach Builder: Eliecer Dozier MD #### ALEBREE, AZP, ACADM #### [facility] [address] [place], [place] [id number] Coach Builder: Tomas Diaz MDErythrocyte distribution width (RBC) [Ratio]12.1 %Tpbmsq50.8-14.4Access Hospital DaytonComment on above:Performed By: #### CREG, PSAS, BUN, CDP #### [facility] [address] [place] [phone] Coach Builder: Eliecer Dozier MD #### ALEBREE, AZP, ACADM #### [facility] [address] [place], [place] [id number] Coach Builder: Tomas Diaz MDHematocrit (Bld) [Volume fraction]43.5 %Normal 40.7-50.3Mav[facility] hospitaly [facility] Metropolitan Medical CenterComment on above:Performed By: #### CREG, PSAS, BUN, CDP #### [facility] [address] [place] [address] Coach Builder: Eliecer Dozier MD #### PENNY, AZP, ACADM #### [facility] [address] [place], [place] [id number] Coach Builder: Tomas Diaz MDHemoglobin (Bld) [Mass/Vol]14.9 g/dLNormal 13.0-17.0Access Hospital DaytonComment on above:Performed By: #### CREG, PSAS, BUN, CDP #### [facility] [address] [place] [address] Coach Builder: Eliecer Dozier MD #### ALEBREE, AZP, ACADM #### [facility] [address] [place], [place] [id number] Coach Builder: Tomas Diaz, MDImmature granulocytes/100 WBC (Bld)0 %Normal0 Access Hospital DaytonComment on above:Performed By: #### CRESanjana, PSAS, BUN, CDP #### [address] [address] Coach Builder: Eliecer Dozier MD #### ALEBREE, REHANP, ACADM #### [facility] [address] [place] [address] Coach Builder: Tomas Diaz MDLymphocytes (Bld) [#/Vol]1.66 10*3/uLNormal 1.10-3.70[facility] Hospital DaytonComment on above:Performed By: #### ITALIA, PSAS, BUN, CDP #### [address] [address] Coach Builder: Eliecer Dozier MD #### MONISHA FRANCIS, ACADM #### [facility] [address] [place] [address] Coach Builder: Tomas Diaz MDLymphocytes/100 WBC (Bld)14 %Zrz73-56AdrzyAccess Hospital DaytonComment on above:Performed By: #### CRESanjana, PSAS, BUN, CDP #### [address] [address] Coach Builder: Eliecer Dozier MD #### PENNY, REHANP, ACADM #### [facility] [address] [place] [address] Coach Builder: DROA PriestCH (RBC) [Entitic mass]28.9 hqYjowmk74.2-33.5 [facility] Hospital DaytonComment on above:Performed By: #### CREG, PSAS, BUN, CDP #### [address] [address] Coach Builder: Eliecer Dozier MD #### ALEAD, AZP, ACADM #### [facility] [address] [place] [address] Coach Builder: DORA PriestCHC (RBC) [Mass/Vol]34.3 g/yEKnqlil91.4-34.8 [facility] Hospital DaytonComment on above:Performed By: #### CREG, PSAS, BUN, CDP #### [address] [address] Coach Builder: Eliecer Dozier MD #### ALEBREE, AZP, ACADM #### [facility] [address] [place] [address] Coach Builder: DORA PriestCV (RBC) [Entitic vol]84.3 dJQxyjrd65.6-102.9 [facility] Hospital DaytonComment on above:Performed By: #### CRESanjana, PSAS, BUN, CDP #### [place] [address] Coach Builder: Eliecer Dozier MD #### MONISHA FRANCIS, ACADM #### [facility] [address] [place], [place] [id number] Coach Builder: Tomas Diaz MDMonocytes (Bld) [#/Vol]0.56 10*3/uLNormal 0.10-1.20[facility] Hospital DaytonComment on above:Performed By: #### CREG, PSAS, BUN, CDP #### [address] [address] Coach Builder: Eliecer Dozier MD #### ALEBREE, AZP, ACADM #### [facility] [address] [place] [address] Coach Builder: DORA Priestonocytes/100 WBC (Bld)5 %Normal3-12[facility] Hospital DaytonComment on above:Performed By: #### CREG, PSAS, BUN, CDP #### [facility] [address] [place] [address] Coach Builder: Eliecer Dozier MD #### MONISHA FRANCIS, ACADM #### [facility] [address] [place] [address] Coach Builder: Tomas Diaz MDNeutrophil (Seg)79 %Qjyh29-24MyflsAccess Hospital DaytonComment on above:Performed By: #### CREG, PSAS, BUN, CDP #### [facility] [address] [place] [address] Coach Builder: Eliecer Dozier MD #### MONISHA FRANCIS, ACADM #### [facility] [address] [place] [address] Coach Builder: Tomas Diaz MDNRBC Automated0.0 per 100 WBCNormal0.0Access Hospital DaytonComment on above:Performed By: #### CREG, PSAS, BUN, CDP #### [facility] [address] [place] [address] Coach Builder: Eliecer Dozier MD #### MONISHA FRANCIS, ACADM #### [facility] [address] [place] [address] Coach Builder: Amor Priest mean volume (Bld) [Entitic vol]9.5 fL Normal8.1-13.5Access Hospital DaytonComment on above:Performed By: #### CREG, PSAS, BUN, CDP #### [facility] [address] [place] [address] Coach Builder: Eliecer Dozier MD #### REHAN FRANCISP, ACADM #### [facility] [address] [place] [address] Coach Builder: Melissa Priest (Bld) [#/Vol]275 10*3/bNRsxzpi940-124 [facility] Hospital DaytonComment on above:Performed By: #### CREG, PSAS, BUN, CDP #### [facility] [address] [place] [address] Coach Builder: Eliecer Dozier MD #### ALEAD, AZP, ACADM #### [facility] [address] [place] [address] Coach Builder: DENNIS Priest ([facility]) [#/Vol]5.16 10*6/uLNormal4.21-5.77[facility] Hospital DaytonComment on above:Performed By: #### CREG, PSAS, BUN, CDP #### [address] [address] Coach Builder: Eliecer Dozier MD #### PENNY, REHANP, ACADM #### [facility] [address] [place] [address] Coach Builder: Tomas Diaz MDGOOD [facility] ([facility]) [#/Vol]11.7 10*3/uLHigh3.5-11.3M[facility] hospitaly [facility] Medical CenterComment on above:Performed By: #### CREG, PSAS, BUN, CDP #### [address] [address] Coach Builder: Eliecer Dozier MD #### ALEBREE, AZP, ACADM #### [facility] [address] [place] [address] Coach Builder: BRADFORD Priestadmium, Urineon 89-78-1009SfzplbISVRXOMgrlafOhioHealth O'Bleness HospitalComment on above:Performed By: #### TROPI, CDP, BMP #### [facility] [address] [place] [address] Coach Builder: Eliecer Dozier MDjinny CollectedRANKindred HealthcareComment on above:Performed By: #### TROPI, CDP, BMP #### [facility] [place], [place] [address] Coach Builder: BRADFORD Aureatinineon 72-49-7561Cggdwcfqac [Mass/Vol]1.2 mg/dL0.7 - 1.2 mg/dLBon [facility]rville HospitalEst, Glom Filt Rate79- PINFBon [facility] Orrville HospitalComment on above: These results are not intended for use in patients <18 years of age. eGFR results are calculated without a race factor using the 2020 CKD-EPI equation. Careful clinical correlation is recommended, particularly when comparing to results calculated using previous equations. The CKD-EPI equation is less accurate in patients with extremes of muscle mass, extra-renal metabolism of creatine, excessive creatine ingestion, or following therapy that affects renal tubular secretion. Creatinine w/GFRon 33-17-5540Elpypxfdps [Mass/Vol]1.2 mg/dLNormal0.7-1.2[facility] Medical CenterComment on above:Performed By: #### CREG, PSAS, BUN, CDP #### [facility] [place], [place] [phone] Coach Builder: Eliecer Dozier MD #### MONISHA FRANCIS ACADM #### [address] [address] Coach Builder: Tomas Diaz MDGFR/1.73 sq M.predicted among non-blacks MDRD (S/P/Bld) [Vol rate/Area]79 mL/min/{1.73_m2}Normal>60[facility] Medical CenterComment on above:Result Comment: These results are not intended for use in patients <18 years of age. eGFR results are calculated without a race factor using the 2020 CKD-EPI equation. Careful clinical correlation is recommended, particularly when comparing to results calculated using previous equations. The CKD-EPI equation is less accurate in patients with extremes of muscle mass, extra-renal metabolism of creatine, excessive creatine ingestion, or following therapy that affects renal tubular secretion.Performed By: #### CREG, PSAS, BUN, CDP #### [facility] [address] [place] [address] Coach Builder: Eliecer Dozier MD #### MONISHA FRANCIS ACADM #### SHERYL [address] [address] Coach Builder: Tomas Diaz MDNo Panel Informationon 50-29-4422Nsf SecTrios Healthy HealthPSA Screeningon 92-08-4320Fkojdnbp specific Ag [Mass/Vol]0.35 ng/mL 0.00 - 4.00 ng/mLBon SecTrios Healthy Kettering HealthComment on above:The Lion ECLIA assay is used. Results obtained with different assay methods cannot be used interchangeably. [facility]y HealthPSA, Screeningon [id number] Spec. Ag0.35 ng/mL Normal0.00-4.00Access Hospital DaytonComment on above:Result Comment: The Lion ECLIA assay is used. Results obtained with different assay methods cannot be used interchangeably.Performed By: #### CREG, PSAS, BUN, CDP #### [employer] [address] [place] [address] [phone] Coach Builder: Eliecer Dozier MD #### MONISHA FRANCIS ACADM #### SHERYL [address] [address] Coach Builder: Tomas Diaz MDUrinalysison 73-22-9596Rwwtxdxjm Ql (U)Negative NEGATIVEBon Secours Mercy HealthClarity (U)ClearClearBon Sec[facility] Health Color (U)YellowYellowBon Secours Mercy HealthCommentMicroscopic exam not performed based on chemical results unless requested in original order.[facility] HealthGlucose Test strip (U) [Mass/Vol]NegativeNEGATIVE mg/dLBon Secours Mercy HealthHemoglobin Auto test strip Ql (U)NegativeNEGATIVEBon Secours Mercy HealthInterpretation and review of laboratory resultsAbnormalBon Secours Mercy HealthKetones (U) [Mass/Vol]NegativeNEGATIVE mg/dLBon [facility] Health Leukocyte esterase Test strip Ql (U)NegativeNEGATIVEBon Secours [facility] Health Nitrite Ql (U)NegativeNEGATIVEBon Secours [facility] Hospitaly HealthpH (U)7.0 [pH]5.0 - 8.0[facility] HealthProtein (U) [Mass/Vol]NegativeNEGATIVE mg/dLBon SecTrios Healthy HealthSpecific gravity (U) [Rel density]1.282Oeq1.005 - 1.030Bon [facility]St. [facility] HealthUrobilinogen Qn (U)Normal0.0 - 1.0 EU/dLBon Secours [facility] Hospitaly HealthBon Secours [facility] Hospitaly HealthUrinalysis, Routineon 34-59-7705Gepdzrkzc, SemiQt,UrNegative NormalNEGAccess Hospital DaytonComment on above:Performed By: #### TROPANALILIA Doherty, BMP #### [facility] [address] [place] [address] Coach Builder: Justice Au, UrineNegativeNormalNEGAccess Hospital DaytonComment on above:Performed By: #### TROPI, CDP, BMP #### [facility] [address] [place] [address] Coach Builder: BRADFORD Aularity (U)ClearNormalCLEARMerTorrance Memorial Medical CenterComment on above:Performed By: #### TROPI, CDP, BMP #### [facility] [address] [place] [address] Coach Builder: BRADFORD Auolor (U)YellowNormalYELMerTorrance Memorial Medical CenterComment on above:Performed By: #### TROPI, CDP, BMP #### [facility] [address] [place] [phone] Coach Builder: Kiel AuMicroscopic exam not performed based on chemical results unless requested inNPremier Health [facility] Comment on above:Result Comment: original order.Performed By: #### TROPI, CDP, BMP #### [facility] [address] [place] [phone] Coach Builder: Eliecer Dozier MDGlucose Ql (U)NegativeNormalNEGAccess Hospital DaytonComment on above:Performed By: #### TROPBessy CDP, BMP #### [facility] [address] [place] [address] Coach Builder: Eliecer Dozier MDKetones Ql (U)NegativeNormalNEGAccess Hospital DaytonComment on above:Performed By: #### TROPBessy CDP, BMP #### [facility] [address] [place] [address] 06[address] Coach Builder: Eliecer Dozier MDLeukocyte esterase Test strip Ql (U)Negative NormalNEGAccess Hospital DaytonComment on above:Performed By: #### TROPBessy CDP, BMP #### [facility] [address] [place] [address] Coach Builder: Ana Autrite,UrNegativermMarietta Osteopathic ClinicComment on above:Performed By: #### TROPANALILIA Doherty, BMP #### [facility] [address] [place] [phone] Coach Builder: INTHYA Au,Ur7.8Mcyxic6.0-8.0Access Hospital DaytonComment on above:Performed By: #### ANALILIA REN, BMP #### [facility] [address] [place] [address] Coach Builder: NITHYA Aurotein Ql (U)NegativeNormalNEGAccess Hospital DaytonComment on above:Performed By: #### TROPBessy CDP, BMP #### [facility] [address] [place] [address] Coach Builder: FLORENCE Aupec. [place],Ur1.682Ojy4.005-1.030Access Hospital DaytonComment on above:Performed By: #### TROPBessy CDP, BMP #### [facility] [address] [place] [address] Coach Builder: Louie Au,UrNormalNormal0.0-1.0Access Hospital DaytonComment on above:Performed By: #### TROPI, CDP, BMP #### [facility] [address] [place] [address] Coach Builder: Eliecer Dozier MDXR CHEST (2 VW)on [id number] CHEST (2 VW) EXAMINATION: TWO XRAY VIEWS OF THE CHEST 03/09/2024 10:11 am COMPARISON: 07/02/2007 HISTORY: ORDERING SYSTEM PROVIDED HISTORY: Pre-employment health screening examination TECHNOLOGIST PROVIDED HISTORY: w/ B reading [employer] ORDER ID:->[id number] FINDINGS: The lungs are without acute focal process. There is no effusion or pneumothorax. The cardiomediastinal silhouette is without acute process. The osseous structures are without acute process. IMPRESSION: No acute process. Interpreted by: Manjit Cates MD Signed by: Manjit Cates MD 03/09/24 Final resultNormalAccess Hospital DaytonXR Chest 2 Viewson 03-09-2024 No acute process. [facility] JESSICA CONSOLIDATEDEXAMINATION: TWO XRAY VIEWS OF THE CHEST 03/09/2024 10:11 am COMPARISON: 07/02/2007 HISTORY: ORDERING SYSTEM PROVIDED HISTORY: Pre-employment health screening examination TECHNOLOGIST PROVIDED HISTORY: w/ B reading [employer] ORDER ID:->[id number] FINDINGS: The lungs are without acute focal process. There is no effusion or pneumothorax. The cardiomediastinal silhouette is without acute process. The osseous structures are without acute process. [facility] Manjit Musa MD - 03/09/2024 EXAMINATION: TWO XRAY VIEWS OF THE CHEST 03/09/2024 10:11 am COMPARISON: 07/02/2007 HISTORY: ORDERING SYSTEM PROVIDED HISTORY: Pre-employment health screening examination TECHNOLOGIST PROVIDED HISTORY: w/ B reading [employer] ORDER ID:->[id number] FINDINGS: The lungs are without acute focal process. There is no effusion or pneumothorax. The cardiomediastinal silhouette is without acute process. The osseous structures are without acute process. IMPRESSION: No acute process. [facility] HospitalRadiology Study observation (narrative)[facility] HospitalXR Chest 2 ViewsOrdered By: Manjit Cates on 50-89-6506Xlb [facility] [employer] Work Phone: XR ABDOMEN AP 1 VWon 31-66-9875VF ABDOMEN AP 1 VWXR ABDOMEN AP 1 VW Abdomen single view COMPARISON: None. HISTORY: Chronic constipation for 2 months. Lower abdominal pain. Findings: AP supine view of the abdomen. There is a nonobstructive bowel gas pattern. No free gas. Gas-fillednondistended bowel loops are seen. Moderate amount of fecal residue mixed with air within the colonand rectum compatible with constipation in the proper clinical setting. Impression: Nonobstructive, nonspecific bowel gas pattern. Moderate fecal burden compatible with constipation in the proper clinical setting. Finalized by Loy Millan MD on 02/19/2023 12:47 PMNOur Lady of Mercy HospitalXR CHEST 1 VWon 15-25-9801SM CHEST 1 VWXR CHEST 1 VW XR CHEST 1 VW HISTORY: Left upper chest pain COMPARISON: 11/17/2018 FINDINGS: PA upright view of the chest The trachea is midline. Cardiomediastinal contour within normal limits. No focal consolidation. No pleural effusion or pneumothorax. IMPRESSION: * No acute pulmonary process. Finalized by Loy Millan MD on 02/19/2023 12:46 PMNOur Lady of Mercy HospitalXR SHOULDER RT MIN 2 VWSon [id number] SHOULDER RT MIN 2 VWSXR SHOULDER RT MIN 2 VWS XR SHOULDER RT MIN 2 VWS CLINICAL HISTORY: Right shoulder pain. COMPARISON: None. FINDINGS: 3 views are obtained. Soft tissues: Unremarkable. Osseous structures: No acute fracture. No destructive osseous lesion. Joints: No dislocation or malalignment. IMPRESSION: * No acute fracture or malalignment. Finalized by Loy Millan MD on 02/19/2023 12:45 PMNOur Lady of Mercy HospitalJail Documentson 84-19-4621Ptiz Documents [id number]#1.00CD:127Nena [facility] CenterJail Documentson 36-91-8386Robf Documents [id number]#1.00CD:127Nena [facility]il [id number]#1.00CD:127Moriah Bautista [facility] CenterJail Documents [id number]#1.00CD:BeverleyOhioHealth Dublin Methodist HospitalXR FOREARM RT 2Von 17-83-5488VI FOREARM RT 2VIMAGES REVIEWED: XR FOREARM RT 2V COMPARISON: None available. CLINICAL INDICATION: Foreign body FINDINGS/IMPRESSION: 1. Focal soft tissue swelling involving the posterior proximal forearm. 2. No radiopaque foreign bodies seen in the soft tissues. 3. No evidence of acute osseous abnormality of the right forearm. 4. No elbow joint effusion. Electronically authenticated by: CLEMENCIA COE Date: 2022-02-22 17:53[facility] Medical CenterCARDIAC DESI ADMITon [id number] [Catalytic activity/Vol]275 U/TBvqsko84-401Kix [facility] Hospital LimaComment on above:Performed By: #### LISBETH, BMP #### [facility] [address] [address] [address] Feli Gomez.MB [Mass/Vol]4.38 ng/mLCritically high<=3.60The [facility] Hospital LimaComment on above:Performed By: #### CMACARLA, BMP #### [facility] [address] [address] [address] Feli XiaoTROP4.0 pg/mLNormal4.0-76.1[facility] on above:Result Comment: CUT-OFF POINTS HAVE BEEN ESTABLISHED BASED ON THE FOURTH UNIVERSAL DEFINITIONS OF MYOCARDIAL INFARCTION. THE UPPER REFERENCE LIMIT (URL) OF TROPONIN, DEFINED THE 99TH PERCENTILE OF cTnI DISTRIBUTION IN A REFERENCE POPULATION, HAS BEEN CONFIRMED THE DECISION THRESHOLD FOR LA DIAGNOSIS.Performed By: #### CMADM, BMP #### [facility] [address] [place] [address] Dr. Feli PenaO101 ng/mLCritically vgus06-22Jod [facility] LimaComment on above:Performed By: #### CMADM, BMP #### [facility] [address] [place] [address] Dr. Feli Reilly AUTO DIFFon 88-54-5681YKOA #0.1 103/ulNormal0.0-0.1The [facility] Hospital LimaComment on above:Performed By: #### CBC #### [facility] [address] [place] [address] Dr. Feli HareBasophils/100 WBC (Bld)0.5 %Normal0.2-2.0[facility] on above:Performed By: #### CBC #### [facility] [address] [place] [address] Dr. Feli Lancaster #0.0 103/ulNormal0.0-0.7The [facility] Hospital LimaComment on above: Performed By: #### CBC #### [facility] [address] [place] [address] Dr. Feli Chairezosinophils/100 WBC (Bld)0.4 %Critically low0.9-7.0[facility] Ment[facility] HospitalComment on above:Performed By: #### CBC #### [facility] [address] [place] [address] Dr. Feli Chairezrythrocyte distribution width (RBC) [Ratio]13.5 %Wgifcx70.0-15.0 [facility] HospitalComment on above:Performed By: #### CBC #### [facility] [address] [place] [address] Dr. Feli HareHematocrit (Bld) [Volume fraction]39.4 %Critically low42.0-54.0 [facility] HospitalComment on above:Performed By: #### CBC #### [facility] [address] [place] [address] Dr. Yilan ChangHemoglobin (Bld) [Mass/Vol]13.2 g/dLCritically low14.0-18.0The [facility] LimaComment on above:Performed By: #### CBC #### [facility] [address] [place] [address] Dr. Feli Brooks #0.02 10e3/ulNormal0.00-0.03The [facility] Hospital LimaComment on above:Performed By: #### CBC #### [facility] [address] [place] [address] Dr. Feli Brooks %0.2 %Normal0.0-0.5The [facility] Hospital LimaComment on above: Performed By: #### CBC #### [facility] [address] [place] [address] Dr. Feli Gillespie #1.5 103/ulNormal1.2-3.8The [facility] Hospital LimaComment on above:Performed By: #### CBC #### [facility] [address] [place] [address] Dr. Feli Bankshocytes/100 WBC (Bld)15.9 %Critically low20.5-60.0The [facility] LimaComment on above:Performed By: #### CBC #### [facility] [address] [place] [address] Dr. Feli FerrellUAL DIFF REQNONormalThe [facility] Hospital LimaComment on above: Performed By: #### CBC #### [facility] [address] [place] [address] Dr. Feli Pierce (RBC) [Entitic mass]28.7 qkBqpajb13.9-34.0The [facility] Hospital LimaComment on above:Performed By: #### CBC #### [facility] [address] [place] [address] Dr. Feli Marks (RBC) [Mass/Vol]33.5 g/oGZvhvif20.9-35.2The Yellow Pine HospitalComment on above:Performed By: #### CBC #### [facility] [address] [place] [address] Dr. Feli Cárdenas (RBC) [Entitic vol]85.7 uYXxkrnz79.0-94.0The [facility] LimaComment on above:Performed By: #### CBC #### [facility] [address] [place] [address] Dr. Feli Valdes #0.5 103/ulNormal0.3-0.8The [facility] Hospital LimaComment on above:Performed By: #### CBC #### [facility] [address] [place] [address] Dr. Feli Cervantesocytes/100 WBC (Bld)5.6 %Normal1.7-12.0The [facility] Comment on above:Performed By: #### CBC #### [facility] [address] [place] [address] Dr. Feli Willingham #7.0 103/ulCritically high1.4-6.5The [facility] Comment on above:Performed By: #### CBC #### [facility] [address] [place] [address] Dr. Feli Vegautrophils/100 WBC (Bld)77.4 %Critically high43.0-75.0The [facility] Hospital LimaComment on above:Performed By: #### CBC #### [facility] [address] [place] [address] Dr. Feli Madison mean volume (Bld) [Entitic vol]8.8 fLCritically low 9.5-13.5The [facility] Hospital LimaComment on above:Performed By: #### CBC #### [facility] [address] [place] [address] Dr. Feli HarePLT313 103/iaAsrtju795-438Ehz [facility] LimaComment on above: Performed By: #### CBC #### [facility] [address] [place] [address] Dr. Feli HareRBC4.60 106/ulCritically low4.70-6.10The [facility] Hospital LimaComment on above:Performed By: #### CBC #### [facility] [address] [place] [address] Dr. Feli HareWBC9.1 103/ulNormal4.0-11.0The [facility] Hospital LimaComment on above: Performed By: #### CBC #### [facility] [address] [address] [address] Feli HareCT CHEST W CONon 72-72-4236SJ CHEST W CONEXAMINATION:CT CHEST W CON INDICATION:Unspecified fall COMPARISON:None TECHNIQUE:Thin section transaxial slices were acquired through the chest. Coronal and sagittal reconstructed images were reviewed. IV CONTRAST:With FINDINGS: LUNGS: There are mild atelectatic changes in the lung bases in the right upper lobe. There is no pneumothorax. PLEURAL CAVITY: There is localized soft tissue thickening along the anterior left upper hemithorax associated with the rib fracture. MEDIASTINUM: There is some debris within the posterior trachea. HEART: The heart is unremarkable. VASCULAR:There is no aneurysm, dissection or transection of the thoracic aorta. LYMPH NODES:No suspicious lymphadenopathy. CHEST WALL/AXILLA: There is a tiny hypodensity in the left pectoralis muscle inferior to the left second rib fracture which measures 1.0 x 0.8 cm which may represent a tiny intramuscular contusion given the clinical history. BONES: There is a subacute fracture of the anterior left second rib without significant displacement. No additional acute osseous injuries are appreciated elsewhere in the bony thorax. VISUALIZED UPPER ABDOMEN: Upper abdominal structures are unremarkable. IMPRESSION: 1. Subacute healing fracture of the anterior left second rib with associated pleural based thickening. No associated pneumothorax in the chest. 2. Tiny hypodensity in the left pectoralis muscle measuring 1.2 x 0.8 cm inferior to the left second rib fracture which may represent a tiny intramuscular contusion. Electronically authenticated by: QUINTIN LUND Date: 2022-02-17 18:16NoMercy Health Lorain HospitalPROF CHEM 8 (BAS METB)on 72-57-3485Refqa gap [Moles/Vol]12.7 mmol/LNormalThe [facility] Hospital LimaComment on above:Performed By: #### CMADM, BMP #### [facility] [address] [address] [address] Feli HareCalcium [Mass/Vol]9.5 mg/dLNormal8.5-10.1The [facility] Comment on above:Performed By: #### CMADM, BMP #### [facility] [address] [address] [address] Feli HareChloride [Moles/Vol]101 mmol/OZekviu92-570GpsCleveland Clinic Mentor Hospital Comment on above:Performed By: #### CMADM, BMP #### [facility] [address] [address] [address] Feli HareCO2 [Moles/Vol]31.3 mmol/QPgxtev16.0-32.0The [facility] Comment on above:Performed By: #### CMADM, BMP #### [facility] [address] [address] [address] Feli HareCreatinine [Mass/Vol]0.91 mg/dLNormal0.70-1.30The [facility] LimaComment on above:Performed By: #### CMADM, BMP #### [facility] [address] [address] [address] Feli ChairezGFR-AF NEPALESE>60Normal>=60The [facility] LimaComment on above:Performed By: #### CMADM, BMP #### [facility] [address] [address] [address] Feli ChairezGFR-NON AF NEPALESE>60Normal>=60[facility] Ment[facility] HospitalComment on above:Performed By: #### CMADM, BMP #### [facility] [address] [address] [address] Feli HareGlucose [Mass/Vol]95 mg/yEKzheja48-122MtlCleveland Clinic Mentor Hospital Comment on above:Performed By: #### CMADM, BMP #### [facility] [address] [address] [address] Feli HarePotassium [Moles/Vol]4.0 mmol/LNormal3.5-5.1[facility] Comment on above:Performed By: #### CMADM, BMP #### [facility] [address] [address] [address] Feli HareSodium [Moles/Vol]141 mmol/FDwxfds041-013HdtCleveland Clinic Mentor Hospital Comment on above:Performed By: #### CMADM, BMP #### [facility] [address] [place] [address] Dr. Feli Kim nitrogen [Mass/Vol]12.0 mg/dLNormal7.0-18.0[facility] Ment[facility] HospitalComment on above:Performed By: #### CMADM, BMP #### [facility] [address] [place] [address] Dr. Feli Kim nitrogen/Creatinine [Mass ratio]13.2 mg/mgNoMercy Health Lorain HospitalComment on above:Performed By: #### CMADM, BMP #### [facility] [address] [place] [address] Dr. Feli GuerraIMEtomás 28-58-9752FRW Coag (PPP) [Relative time]1.05 {INR} NormalCleveland Clinic Mentor HospitalComment on above:Performed By: #### PT, PTT #### [facility] [address] [place] [address] Dr. Feli Jimenez GUIDELINESSEE BELOWUniversity Hospitals St. John Medical CenterComment on above:Result Comment: DESIRED INR: 2.0 - 3.0 CONDITIONS NOT LISTED BELOW 2.5 - 3.5 FOR PROSTHETIC HEART VALVE REPLACEMENT 2.5 - 3.5 RECURRENT THROMBOSIS Performed By: #### PT, PTT #### [facility] [address] [place] [address] Dr. Feli Hernandez Coag (PPP) [Time]11.3 sNormal9.0-11.6The [facility] Comment on above:Performed By: #### PT, PTT #### [facility] [address] [place] [address] Dr. Feli Toro 23-08-6402tGSJ Coag (Bld) [Time]27.5 rJdvnff64.3-36.2[facility] HospitalComment on above:Performed By: #### PT, PTT #### [facility] [address] [place] [address] Dr. Feli Baez WOUNDon 18-53-8572MIOKYJK WOUNDIsolate 1 Staphylococcus aureus Moderate growth of ORGANISM 1 Staphylococcus aureus ANTIBIOTIC M.I.C RX STATUS Beta-Lactamase Pos POS F Benzylpenicillin >=0.5 R F Gentamicin <=0.5 S F Ciprofloxacin <=0.5 S F Levofloxacin <=0.12 S F Moxifloxacin <=0.25 S F Erythromycin >=8 R F Clindamycin <=0.25 S F Quinupristin/Dalfopristin <=0.25 S F Linezolid 1 S F Vancomycin 1 S F Tetracycline <=1 S F Rifampicin <=0.5 S F Trimethoprim/Sulfamethoxazole <=10 S F Oxacillin 0.5 S FNormalCleveland Clinic Mentor HospitalComment on above:Performed By: #### WOUNDCX #### [facility] [address] [place] [address] Dr. F[facility] HarePIEDMONT NEWTON GLUCOSEon 37-26-9100Sbleepd [Mass/Vol]170 mg/dL Critically mjve90-119MnaCleveland Clinic Mentor HospitalComment on above:Performed By: #### POCGLUC #### [facility] [address] [place] [address] Dr. F[facility]areGriffin Hospital Metabolic Panel Reflex Mgon 62-53-6356Wxxpf gap [Moles/Vol] 11 mmol/LNormal7-16SHaverhill Pavilion Behavioral Health HospitalCalcium [Mass/Vol]9.2 mg/dL Normal8.6-10.2SHaverhill Pavilion Behavioral Health HospitalChloride [Moles/Vol]102 mmol/LNormal 98-107Boston SanatoriumCO2 [Moles/Vol]27 mmol/CKwbpfs77-82XxqqaBoston SanatoriumCreatinine [Mass/Vol]1.1 mg/dLNormal0.7-1.2SHaverhill Pavilion Behavioral Health HospitalGFR Calculated>60Normal>=60[facility] Comment on above:Result Comment: Chronic Kidney Disease: less than 60 ml/min/1.73 sq.m. Kidney Failure: less than 15 ml/min/1.73 sq.m. Results valid for patients 18 years and older.GFR/1.73 sq M.predicted among blacks MDRD (S/P/Bld) [Vol rate/Area]mL/min/{1.73_m2}NormalBoston SanatoriumGlucose [Mass/Vol]113 mg/bBAjtf85-39KaugmBoston Sanatorium Magnesium [Moles/Vol]3.3 mmol/LLow3.5-5.0UMass Memorial Medical Centerodium [Moles/Vol]140 mmol/TDvitqh932-132JconyBoston SanatoriumUrea nitrogen [Mass/Vol]12 mg/dLNormal6-20SHaverhill Pavilion Behavioral Health HospitalCBC With Platelet and Differentialon 52-91-2470Ann Imm Granulocytes0.03 E9/LNormalBoston SanatoriumAbsolute Basophils0.02 E9/LNormal0.00-0.20SHaverhill Pavilion Behavioral Health HospitalAbsolute Eosinophils0.02 E9/LLow0.05-0.50[facility] Absolute Lymphocytes2.16 E9/LNormal1.50-4.00[facility] Absolute Monocytes0.71 E9/LNormal0.10-0.95Boston SanatoriumAbsolute Neutrophils6.65 E9/LNormal1.80-7.30SHaverhill Pavilion Behavioral Health HospitalBasophils/100 WBC (Bld)0.2 %Normal0.0-2.0Boston SanatoriumEosinophils/100 WBC (Bld)0.2 %Normal0.0-6.0Boston SanatoriumHematocrit (Bld) [Volume fraction]43.2 %Ptlmnx24.0-54.0Boston SanatoriumHemoglobin (Bld) [Mass/Vol]14.5 g/wTRqcxlb29.5-16.5SHaverhill Pavilion Behavioral Health HospitalImm Granulocytes 0.3 %Normal0.0-5.0Boston SanatoriumLymphocytes/100 WBC (Bld)22.5 % Ekiymx07.0-42.0Boston SanatoriumMCH (RBC) [Entitic mass]30.0 pg Rzvpqp71.0-35.0Boston SanatoriumMCHC33.6 %Vtepkx44.0-34.5SHaverhill Pavilion Behavioral Health HospitalMCV (RBC) [Entitic vol]89.3 bMBvgvhu60.0-99.9Boston SanatoriumMonocytes/100 WBC (Bld)7.4 %Normal2.0-12.0Boston SanatoriumNeutrophils/100 WBC (Bld)69.4 %Xdfvap13.0-80.0Boston SanatoriumPlatelet Ugwqv568 E9/FFzqcht087-962UbqrnBoston Sanatorium Platelet mean volume (Bld) [Entitic vol]9.4 fLNormal7.0-12.0Boston SanatoriumRBC4.84 E12/LNormal3.80-5.80Boston SanatoriumRDW12.3 fL Xcupfa25.5-15.0Boston SanatoriumWBC9.6 E9/LNormal4.5-11.5SHaverhill Pavilion Behavioral Health HospitalCKOrdered By: Olivia Thomas on 01-55-6441FV [Catalytic activity/Vol]428 U/LHigh20 - 200 U/LMercy Health Work Phone: Interpretation and review of laboratory results AbnormalMer Health Work Phone: [facility] Work Phone: creatine Kinaseon 61-13-4843ZK [Catalytic activity/Vol]428 U/FRtsk40-939SplyoBoston SanatoriumMagnesiumon 37-94-8510Mqgagjutl [Mass/Vol]2.2 mg/dLNormal1.6-2.6UMass Memorial Medical CenterARS-CoV-2 and Influenza A/Bon 55-22-7095Xcxnkaibf A, RT-PCRNot detected NormalNOT DETECTEDBoston SanatoriumInfluenza B, RT-PCRNot detected NormalNOT DETECTEDUMass Memorial Medical CenterARS-CoV-2 (COVID-19) RNA MADDIE+probe Ql (Unsp spec)Not detectedNormalNOT DETECTEDBoston SanatoriumComment on above:Result Comment: Not Detected results do not preclude SARS-CoV-2 infection and should not be used as the sole basis for patient management decisions. Results must be combined with clinical observations, patient history, and epidemiological information. Testing was performed using SHAHRZAD ROBERT SARS-CoV-2 and Influenza A/B nucleic acid assay. This test is a multiplex Real-Time Reverse Transcriptase Polymerase Chain Reaction (RT-PCR)-based in vitro diagnostic test intended for the qualitative detection of nucleic acids from SARS-CoV-2, influenza A, and influenza B in nasopharyngeal and nasal swab specimens for use under the FDA?s Emergency Use Authorization (EUA) only. Patient Fact Sheet: https://www.fda.gov/media/541614/download Provider Fact Sheet: https://www.fda.gov/media/117936/download EUA: https://www.fda.gov/media/061531/download IFU: https://www.fda.gov/media/569870/download Methodology: RT-PCRSerum Drug Screenon [id number] [Mass/Vol]ug/mL Low10.0-30.0[place] SanatoriumEthanol [Mass/Vol]mg/dLNormalSHaverhill Pavilion Behavioral Health HospitalComment on above:Result Comment: Not DetectedSalicylate <0.9Zqrxlx6.0-30.0[place] SanatoriumTCA ScreenNegativeNormal Cutoff:300[facility] Drugs of Abuse Panelon 67-37-5230DP Fentanyl ScreenPositiveAbnormalNegative <1 ng/mL[facility] Comment on above:Result Comment: Note: Therapeutic levels of some antipsychotics (e.g., Haloperidol, Risperidone), antidepressants (e.g., Trazadone), and Methamphetamine are known to show cross-reactivity and cause false positive results. Therefore, confirmatory testing for Fentanyl and metabolites should be considered if clinically indicated.UR Amphetamines ScreenNot detectedNormalNegative <1000 ng/mLBoston SanatoriumUR Barbiturates ScreenNot detectedNormal Negative < 200 ng/mLBoston SanatoriumUR Benzo ScreenNot detected NormalNegative < 200 ng/mLBoston SanatoriumUR Cannabinoids Screen PositiveAbnormalNegative < 50ng/mLBoston SanatoriumUR Cocaine Screen PositiveAbnormalNegative < 300 ng/mLBoston SanatoriumUR Methadone ScreenNot detectedNormalNegative <300 ng/mLBoston SanatoriumUR Opiates ScreenNot detectedNormalNegative < 300ng/mL[facility] Comment on above:Result Comment: Note: The Opiate Screen is not intended to detect Oxycodone.UR Oxycodone ScreenNot detectedNormalNegative <100 ng/mLBoston SanatoriumUR PCP ScreenNot detectedNormalNegative < 25 ng/mLBoston SanatoriumBasic Metabolic Panel w/ Reflex to MGOrdered By: Olivia Thomas on 26-23-9242Guslk gap [Moles/Vol]11 mmol/L7 - 16 mmol/LMShsunedu.comy [employer] Work Phone: calcium [Mass/Vol]9.2 mg/dL8.6 - 10.2 mg/dLCleveland Clinic Union HospitalLooseHead Software Work Phone: chloride [Moles/Vol]102 mmol/L98 - 107 mmol/LMShsunedu.comy [employer] Work Phone: cO2 [Moles/Vol]27 mmol/L22 - 29 mmol/LMShsunedu.comy [employer] Work Phone: creatinine [Mass/Vol]1.1 mg/dL0.7 - 1.2 mg/dLCleveland Clinic Union HospitalLooseHead Software Work Phone: GFR >60MerLooseHead Software Work Phone: GFR Non->60>=60 mL/min/1.73MerMobiform Software Inc. Phone: comment on above:Chronic Kidney Disease: less than 60 ml/min/1.73 sq.m. Kidney Failure: less than 15 ml/min/1.73 sq.m. Results valid for patients 18 years and older. Glucose [Mass/Vol]113 mg/lRGtju04 - 99 mg/dLCleveland Clinic Union HospitalMobiform Software Inc. Phone: Interpretation and review of laboratory results AbnormalCleveland Clinic Union HospitalMobiform Software Inc. Phone: potassium [Moles/Vol]3.3 mmol/LLow3.5 - 5.0 mmol/L [employer] Phone: sodium [Moles/Vol]140 mmol/L132 - 146 mmol/LMavita health system ontario hospitaly [employer] Work Phone: Urea nitrogen (BldV) [Mass/Vol]12 mg/dL6 - 20 mg/dL [employer] Phone: [facility] HospitalLooseHead Software Work Phone: cBC Auto DifferentialOrdered By: Olivia Thomas on 89-81-0432Zsoayewrr (Bld) [#/Vol]0.02 10*3/uLCleveland Clinic Union HospitalMobiform Software Inc. Phone: basophils/100 WBC (Bld)0.2 %0.0 - 2.0 %[employer] Phone: eosinophils Absolute0.02LowCleveland Clinic Union HospitalMobiform Software Inc. Phone: eosinophils/100 WBC (Bld)0.2 %0.0 - 6.0 %[employer] Phone: Hematocrit (Bld) [Volume fraction]43.2 %37.0 - 54.0 % [employer] Phone: Hemoglobin.gastrointestinal spec 1 Ql (Stl)14.5 g/dL 12.5 - 16.5 g/dLCleveland Clinic Union HospitalMobiform Software Inc. Phone: Immature Granulocytes #0.03E9/LMGuroo Phone: Immature granulocytes/100 WBC (Bld)0.3 %0.0 - 5.0 % [employer] Phone: Interpretation and review of laboratory results AbnormalCleveland Clinic Union HospitalMobiform Software Inc. Phone: lymphocytes Absolute2.16[facility] HospitalMobiform Software Inc. Phone: Lymphocytes/100 WBC (Bld)22.5 %20.0 - 42.0 %[employer] Phone: MCH (RBC) [Entitic mass]30.0 pg26.0 - 35.0 pgCleveland Clinic Union HospitalMobiform Software Inc. Phone: [phone] (RBC) [Mass/Vol]33.6 %32.0 - 34.5 %[employer] Phone: MCV (RBC) [Entitic vol]89.3 fL80.0 - 99.9 fLCleveland Clinic Union HospitalMobiform Software Inc. Phone: Monocytes Absolute0.71[facility] HospitalMobiform Software Inc. Phone: Monocytes/100 WBC (Bld)7.4 %2.0 - 12.0 %[employer] Phone: Neutrophils Absolute6.65[facility] HospitalMobiform Software Inc. Phone: [phone]/100 WBC (Bld)69.4 %43.0 - 80.0 %[employer] Phone: Blatelet distribution width (Bld) [Ratio]12.3 fL11.5 - 15.0 VAComVibe Phone: Platelet mean volume (Bld) [Entitic vol]9.4 fL7.0 - 12.0 [facility] ColumbusMobiform Software Inc. Phone: [phone] (Bld) [#/Vol]236 10*3/[employer] Phone: [phone] (Bld) [#/Vol]4.84 10*6/[employer] Phone: [phone] (Bld) [#/Vol]9.6 10*3/[employer] Phone: [phone] HospitalMobiform Software Inc. Phone: CBC Auto DifferentialOrdered By: Lisa Young on 03-21-3022Ekcsxttev (Bld) [#/Vol]0.03 10*3/uLCleveland Clinic Union HospitalMobiform Software Inc. Phone: basophils/100 WBC (Bld)0.2 %0.0 - 2.0 %[employer] Phone: eosinophils Absolute0.00LowComVibe Phone: Eosinophils/100 WBC (Bld)0 %0.0 - 6.0 %[employer] Phone: Hematocrit (Bld) [Volume fraction]44.7 %37.0 - 54.0 % [employer] Phone: Hemoglobin.gastrointestinal spec 1 Ql (Stl)15.5 g/dL 12.5 - 16.5 g/dLCleveland Clinic Union HospitalMobiform Software Inc. Phone: Immature Granulocytes #0.09E9/LMercBio2 Technologies Phone: Immature granulocytes/100 WBC (Bld)0.5 %0.0 - 5.0 % [employer] Phone: Interpretation and review of laboratory results AbnormalCleveland Clinic Union HospitalMobiform Software Inc. Phone: Lymphocytes Absolute1.03LowComVibe Phone: Lymphocytes/100 WBC (Bld)5.7 %Low20.0 - 42.0 %[employer] Phone: MCH (RBC) [Entitic mass]30.2 pg26.0 - 35.0 pgCleveland Clinic Union HospitalMobiform Software Inc. Phone: MCHC (RBC) [Mass/Vol]34.7 %High32.0 - 34.5 %[employer] Phone: MCV (RBC) [Entitic vol]87.0 fL80.0 - 99.9 fLCleveland Clinic Union HospitalMobiform Software Inc. Phone: Monocytes Absolute1.09HighComVibe Phone: Monocytes/100 WBC (Bld)6.0 %2.0 - 12.0 %[employer] Phone: Neutrophils Mndhwxov55.80HighComVibe Phone: Neutrophils/100 WBC (Bld)87.6 %High43.0 - 80.0 %[employer] Phone: platelet distribution width (Bld) [Ratio]12.0 fL11.5 - 15.0 [employer] Phone: Rlatelet mean volume (Bld) [Entitic vol]9.7 fL7.0 - 12.0 [facility] ColumbusMobiform Software Inc. Phone: platelets (Bld) [#/Vol]254 10*3/Relativity TechnologiesCleveland Clinic Union HospitalMobiform Software Inc. Phone: RBC (Bld) [#/Vol]5.14 10*6/[employer] Phone: WBC (Bld) [#/Vol]18.0 10*3/Prism DigitalCleveland Clinic Union HospitalMobiform Software Inc. Phone: [facility] HospitalMobiform Software Inc. Phone: cBC With Platelet and Differentialon 25-91-9747Nch Imm Granulocytes0.09 E9/LNormalSaNorth Adams Regional HospitalAbsolute Basophils0.03 E9/LNormal0.00-0.20SHaverhill Pavilion Behavioral Health HospitalAbsolute Eosinophils0.00 E9/LLow 0.05-0.50Boston SanatoriumAbsolute Lymphocytes1.03 E9/LLow1.50-4.00 [facility]atoriumAbsolute Monocytes1.09 E9/LHigh0.10-0.95[facility] SanatoriumAbsolute Zhbkfmhalao51.80 E9/LHigh1.80-7.30SHaverhill Pavilion Behavioral Health HospitalBasophils/100 WBC (Bld)0.2 %Normal0.0-2.0[place] SanatoriumEosinophils/100 WBC (Bld)0.0 %Normal0.0-6.0[place] SanatoriumHematocrit (Bld) [Volume fraction]44.7 %Wghdvq34.0-54.0[place] SanatoriumHemoglobin (Bld) [Mass/Vol]15.5 g/jVXwjkzh19.5-16.5SHaverhill Pavilion Behavioral Health HospitalImm Granulocytes0.5 %Normal0.0-5.0[facility] Lymphocytes/100 WBC (Bld)5.7 %Low20.0-42.0[place] SanatoriumMCH (RBC) [Entitic mass]30.2 gdAhftnu29.0-35.0[place] SanatoriumMCHC34.7 %High 32.0-34.5SHaverhill Pavilion Behavioral Health HospitalMCV (RBC) [Entitic vol]87.0 fLNormal 80.0-99.9Boston SanatoriumMonocytes/100 WBC (Bld)6.0 %Normal2.0-12.0 [place] SanatoriumNeutrophils/100 WBC (Bld)87.6 %High43.0-80.0[place] SanatoriumPlatelet Xygcb308 E9/QPrxnea910-656EzqjaBoston SanatoriumPlatelet mean volume (Bld) [Entitic vol]9.7 fLNormal7.0-12.0[place] SanatoriumRBC5.14 E12/LNormal3.80-5.80[facility] RDW12.0 kLNqaidr21.5-15.0[facility] SanatoriumWBC18.0 E9/LHigh4.5-11.5 [place] SanatoriumCOVID-19 & Influenza ComboOrdered By: Olivia Thomas on 85-08-1973RGMLMSUVX ANot detectedNOT DETECTEDMercy Health Work Phone: INFLUENZA BNot detectedNOT DETECTEDMer Health Work Phone: [phone]-FdR-2 (COVID-19) RNA MADDIE+probe Ql (Unsp spec)Not detectedNOT DETECTEDCleveland Clinic Union HospitalMobiform Software Inc. Phone: comment on above:Not Detected results do not preclude SARS-CoV-2 infection and should not be used as the sole basis for patient management decisions. Results must be combined with clinical observations, patient history, and epidemiological information. Testing was performed using SHAHRZAD ROBERT SARS-CoV-2 and Influenza A/B nucleic acid assay. This test is a multiplex Real-Time Reverse Transcriptase Polymerase Chain Reaction (RT-PCR)-based in vitro diagnostic test intended for the qualitative detection of nucleic acids from SARS-CoV-2, influenza A, and influenza B in nasopharyngeal and nasal swab specimens for use under the FDA s Emergency Use Authorization (EUA) only. Patient Fact Sheet: https://www.fda.gov/media/357644/download Provider Fact Sheet: https://www.fda.gov/media/797028/download EUA: https://www.fda.gov/media/701611/download IFU: https://www.fda.gov/media/778827/download Methodology: RT-PCR [facility] [employer] Phone: [phone]-56 & Influenza ComboOrdered By: Lisa Young on 26-20-6832GGEKYVRIU ANot detectedNOT DETECTEDCleveland Clinic Union HospitalMobiform Software Inc. Phone: INFLUENZA BNot detectedNOT DETECTEDCleveland Clinic Union HospitalMobiform Software Inc. Phone: [phone]-KmY-2 (COVID-19) RNA MADDIE+probe Ql (Unsp spec)Not detectedNOT DETECTEDCleveland Clinic Union HospitalMobiform Software Inc. Phone: comment on above:Not Detected results do not preclude SARS-CoV-2 infection and should not be used as the sole basis for patient management decisions. Results must be combined with clinical observations, patient history, and epidemiological information. Testing was performed using SHAHRZAD ROBERT SARS-CoV-2 and Influenza A/B nucleic acid assay. This test is a multiplex Real-Time Reverse Transcriptase Polymerase Chain Reaction (RT-PCR)-based in vitro diagnostic test intended for the qualitative detection of nucleic acids from SARS-CoV-2, influenza A, and influenza B in nasopharyngeal and nasal swab specimens for use under the FDA s Emergency Use Authorization (EUA) only. Patient Fact Sheet: https://www.fda.gov/media/692021/download Provider Fact Sheet: https://www.fda.gov/media/028080/download EUA: https://www.fda.gov/media/310189/download IFU: https://www.fda.gov/media/668709/download Methodology: RT-PCR [employer] Phone: comprehensive Metabolic Panel reflex Mgon 09-05-2020 Albumin [Mass/Vol]4.7 g/dLNormal3.5-5.2SHaverhill Pavilion Behavioral Health HospitalALP [Catalytic activity/Vol]88 U/QXwtffg66-315HdznnBoston SanatoriumALT [Catalytic activity/Vol]31 U/LNormal0-40SHaverhill Pavilion Behavioral Health HospitalAnion gap [Moles/Vol]16 mmol/LNormal7-16SHaverhill Pavilion Behavioral Health HospitalAST [Catalytic activity/Vol]16 U/LNormal0-39[place] SanatoriumBilirubin [Mass/Vol] 0.2 mg/dLNormal0.0-1.2SHaverhill Pavilion Behavioral Health HospitalCalcium [Mass/Vol]9.1 mg/dL Normal8.6-10.2SHaverhill Pavilion Behavioral Health HospitalChloride [Moles/Vol]103 mmol/LNormal 98-107Boston SanatoriumCO2 [Moles/Vol]21 mmol/YAis21-67TuqbqBoston SanatoriumCreatinine [Mass/Vol]1.6 mg/dLHigh0.7-1.2SHaverhill Pavilion Behavioral Health HospitalGFR/1.73 sq M.predicted among blacks MDRD (S/P/Bld) [Vol rate/Area] 59 mL/min/{1.73_m2}NormalBoston SanatoriumGFR/1.73 sq M.predicted among non-blacks MDRD (S/P/Bld) [Vol rate/Area]49 mL/min/{1.73_m2}Normal>=60 [facility] SanatoriumComment on above:Result Comment: Chronic Kidney Disease: less than 60 ml/min/1.73 sq.m. Kidney Failure: less than 15 ml/min/1.73 sq.m. Results valid for patients 18 years and older.Glucose [Mass/Vol]224 mg/dLHigh 74-99SaNorth Adams Regional HospitalMagnesium [Moles/Vol]3.8 mmol/LNormal3.5-5.0 [place] SanatoriumProtein [Mass/Vol]7.3 g/dLNormal6.4-8.3SHillcrest Hospitalodium [Moles/Vol]140 mmol/AFabpjl924-444LptnyNorth Adams Regional HospitalUrea nitrogen [Mass/Vol]15 mg/dLNormal6-20SHaverhill Pavilion Behavioral Health HospitalComprehensive Metabolic Panel w/ Reflex to MGOrdered By: Lisa Young on 78-62-4611Nfnozej [Mass/Vol]4.7 g/dL3.5 - 5.2 g/dLCleveland Clinic Union HospitalLooseHead Software Work Phone: aLP (Bld) [Catalytic activity/Vol]88 U/L40 - 129 U/L [facility] HospitalMaxWest Environmental Systems Work Phone: aLT [Catalytic activity/Vol]31 U/L0 - 40 U/LMVenX Medical Work Phone: anion gap [Moles/Vol]16 mmol/L7 - 16 mmol/LMShsunedu.comy [employer] Work Phone: aST [Catalytic activity/Vol]16 U/L0 - 39 U/LMVenX Medical Work Phone: bilirubin [Mass/Vol]0.2 mg/dL0.0 - 1.2 mg/dLCleveland Clinic Union HospitalLooseHead Software Work Phone: calcium [Mass/Vol]9.1 mg/dL8.6 - 10.2 mg/dLCleveland Clinic Union HospitalMobiform Software Inc. Phone: chloride [Moles/Vol]103 mmol/L98 - 107 mmol/LMVenX Medical Work Phone: cO2 [Moles/Vol]21 mmol/LLow22 - 29 mmol/LMVenX Medical Work Phone: creatinine [Mass/Vol]1.6 mg/dLHigh0.7 - 1.2 mg/dLCleveland Clinic Union HospitalMobiform Software Inc. Phone: Free PSA/Total PSA [Mass fraction]7.3 g/dL6.4 - 8.3 g/dLCleveland Clinic Union HospitalMobiform Software Inc. Phone: GFR Gthsbuwz03Cbjpx [employer] Work Phone: GFR Non- Fwtjghrk92 mL/min/1.73>=60[facility] [employer] Work Phone: comment on above:Chronic Kidney Disease: less than 60 ml/min/1.73 sq.m. Kidney Failure: less than 15 ml/min/1.73 sq.m. Results valid for patients 18 years and older. Glucose [Mass/Vol]224 mg/gOUfwk27 - 99 mg/dLCleveland Clinic Union HospitalMobiform Software Inc. Phone: potassium [Moles/Vol]3.8 mmol/L3.5 - 5.0 mmol/LM[facility] Work Phone: sodium [Moles/Vol]140 mmol/L132 - 146 mmol/LMVenX Medical Work Phone: Urea nitrogen (BldV) [Mass/Vol]15 mg/dL6 - 20 mg/dL [facility] [employer] Phone: eKG 12 LeadOrdered By: Lisa Young on 50-08-8985Imzmza Rsqi623DPTYmnin Health Work Phone: p Vndt05flwycvsZiwqw Health Work Phone: p-R Qqlmmaxy911 [facility]averVenX [facility] Work Phone: Q-T Inanffcj878 [employer] Work Phone: QRS Yxnoesxf46 [facility]averVen[facility] Work Phone: QTc Calculation (Mg)534 [facility]averVen[facility] Work Phone: r Oqmk04xucdaemXgkki Health Work Phone: T Vqxi39yycavsxJgqfz Health Work Phone: Ventricular Ajot061OKIUubhi [employer] Phone: sinus tachycardia Otherwise normal ECG No previous ECGs available Confirmed by Zachariah Mccarthy ([id number]) on 09/05/2020 6:49:19 AM [facility] [employer] Phone: edi, y Incoming Ekg Results From [place] - 09/05/2020 6:49 AM EDT Sinus tachycardia Otherwise normal ECG No previous ECGs available Confirmed by Zachariah Mccarthy ([id number]) on 09/05/2020 6:49:19 AMCleveland Clinic Union HospitalMobiform Software Inc. Phone: [facility] [employer] Phone: High Sensitivity Troponin Ton 57-01-5529Rslg Sensitivity Troponin T26 ng/[facility]0-11[facility] SanatoriumCommclaren port [facility] hospital on above:Result Comment: High Sensitivity Troponin values cannot be compared with other Troponin methodologies. Patients with high levels of Biotin oral intake (i.e. >5 mg/day) may have falsely decreased Troponin levels. Samples collected within 8 hours of biotin intake may require additional information for diagnosis.High Sensitivity Troponin T28 ng/[facility]0-11[facility] SanatoriumCommclaren port huron hospital on above:Result Comment: High Sensitivity Troponin values cannot be compared with other Troponin methodologies. Patients with high levels of Biotin oral intake (i.e. >5 mg/day) may have falsely decreased Troponin levels. Samples collected within 8 hours of biotin intake may require additional information for diagnosis.High Sensitivity Troponin T24 ng/[facility]0-11[facility] SanatoriumCommclaren port [facility] hospital on above:Result Comment: High Sensitivity Troponin values cannot be compared with other Troponin methodologies. Patients with high levels of Biotin oral intake (i.e. >5 mg/day) may have falsely decreased Troponin levels. Samples collected within 8 hours of biotin intake may require additional information for diagnosis.MagnesiumOrdered By: Olivia Thomas on 59-45-4516Asiyaggqn [Mass/Vol]2.2 mg/dL1.6 - 2.6 mg/dLCleveland Clinic Union HospitalMobiform Software Inc. Phone: [facility] HospitalMobiform Software Inc. Phone: No Panel InformationOrdered By: Lisa Young on 64-08-1173D-spine: Degenerative disc disease from L4-S1. Left foot: Unremarkable. Right foot: Suspected healed erosion at the head of the 5th metacarpal. Consider clinical correlation.[employer] Phone: eXAMINATION: THREE XRAY VIEWS OF THE RIGHT FOOT; THREE XRAY VIEWS OF THE LUMBAR SPINE; THREE XRAY VIEWS OF THE LEFT FOOT 09/05/2020 5:22 am; 09/05/2020 5:21 am COMPARISON: None. HISTORY: ORDERING SYSTEM PROVIDED HISTORY: foot pain TECHNOLOGIST PROVIDED HISTORY: Reason for exam:->foot pain What reading provider will be dictating this exam?->CRC; ORDERING SYSTEM PROVIDED HISTORY: back pain TECHNOLOGIST PROVIDED HISTORY: Reason for exam:- >back pain What reading provider will be dictating this exam?->CRC FINDINGS: L- spine: No fracture or dislocation. Degenerative disc disease is moderate from L4-S1. Normal soft tissues. Left foot: No fracture or dislocation. Normal soft tissues. No significant arthropathy. Right foot: A contour deformity at the 5th metatarsal head suggests a healed erosion. Clinical correlation recommended. No fracture or dislocation. Normal soft tissues.[employer] Phone: edi, y Incoming Radiant Results From [facility] - 09/05/2020 6:38 AM EDT Formatting of thisnote might be different from the original. EXAMINATION: THREE XRAY VIEWS OF THE RIGHT FOOT; THREE XRAY VIEWS OF THE LUMBAR SPINE; THREE XRAY VIEWS OF THE LEFT FOOT 09/05/2020 5:22 am; 09/05/2020 5:21 am COMPARISON: None. HISTORY: ORDERING SYSTEM PROVIDED HISTORY: foot pain TECHNOLOGIST PROVIDED HISTORY: Reason for exam:->foot pain What reading provider will be dictating this exam?->CRC; ORDERING SYSTEM PROVIDED HISTORY: back pain TECHNOLOGIST PROVIDED HISTORY: Reason for exam:->back pain What reading provider will be dictating this exam?->CRC FINDINGS: L-spine: No fracture or dislocation. Degenerative disc disease is moderate from L4-S1. Normal soft tissues. Left foot: No fracture or dislocation. Normal soft tissues. No significant arthropathy. Right foot: A contour deformity at the 5th metatarsal head suggests a healed erosion. Clinical correlation recommended. No fracture or dislocation. Normal soft tissues. IMPRESSION: L-spine: Degenerative disc disease from L4-S1. Left foot: Unremarkable. Right foot: Suspected healed erosion at the head of the 5th metacarpal. Consider clinical correlation. [employer] Work Phone: [facility] HospitalMobiform Software Inc. Phone: Interpretation and review of laboratory results AbnormalKnox Community Hospital Can[employer] Phone: [facility] [employer] Phone: [phone]-VaQ-2 and Influenza A/Bon 32-50-5824Idmbrinhh A, RT-PCRNot detectedNormalNOT DETECTEDBoston SanatoriumInfluenza B, RT-PCRNot detectedNormalNOT DETECTEDUMass Memorial Medical CenterARS-CoV-2 (COVID-19) RNA MADDIE+probe Ql (Unsp spec)Not detectedNormalNOT DETECTEDBoston SanatoriumComment on above:Result Comment: Not Detected results do not preclude SARS-CoV-2 infection and should not be used as the sole basis for patient management decisions. Results must be combined with clinical observations, patient history, and epidemiological information. Testing was performed using SHAHRZAD ROBERT SARS-CoV-2 and Influenza A/B nucleic acid assay. This test is a multiplex Real-Time Reverse Transcriptase Polymerase Chain Reaction (RT-PCR)-based in vitro diagnostic test intended for the qualitative detection of nucleic acids from SARS-CoV-2, influenza A, and influenza B in nasopharyngeal and nasal swab specimens for use under the FDA?s Emergency Use Authorization (EUA) only. Patient Fact Sheet: https://www.fda.gov/media/031671/download Provider Fact Sheet: https://www.fda.gov/media/867482/download EUA: https://www.fda.gov/media/535304/download IFU: https://www.fda.gov/media/774622/download Methodology: RT-PCRSERUM DRUG SCREENOrdered By: Olivia Thomas on 09-05-2020 Acetaminophen Level<5.0LowKnox Community Hospital [employer] Phone: ethanol Lvl<10mg/dLKnox Community Hospital [employer] Phone: comment on above:Not DetectedInterpretation and review of laboratory resultsAbnormAtrium Health Wake [facility] [employer] Work Phone: salicylate, Serum<0.30.0 - 30.0 mg/dLKnox Community Hospital [employer] Work Phone: TCA ScrnNegativeCutoff:300 ng/mLKnox Community Hospital [employer] Phone: [facility] [employer] Phone: serum Drug Screenon 46-55-6099Hdrjicpklaskt [Mass/Vol] ug/mLLow10.0-30.0Boston SanatoriumEthanol [Mass/Vol]mg/dLNormalSHaverhill Pavilion Behavioral Health HospitalComment on above:Result Comment: Not DetectedSalicylate <0.1Aiselu8.0-30.0[facility] SanatoriumTCA ScreenNegativeNormal Cutoff:300[facility] Drug ScreenOrdered By: Lisa Young on 43-61-7671Ajhegblwwqkqz Level<5.0LowKnox Community Hospital [employer] Phone: ethanol Lvl<10mg/dLKnox Community Hospital [employer] Work Phone: comment on above:Not DetectedSalicylate, Serum<0.30.0 - 30.0 mg/dLKnox Community Hospital [employer] Phone: TCA ScrnNegativeCutoff:300 ng/mLKnox Community Hospital [employer] Phone: TroponinOrdered By: Lisa Young on 09-05-2020 Interpretation and review of laboratory resultsAbnoAtrium Health [facility] [employer] Work Phone: Troponin, High Toiqctfbasw55 ng/LHigh0 - 11 ng/LMercy CanDi[employer] Phone: comoyzt on above:High Sensitivity Troponin values cannot be compared with other Troponin methodologies. Patients with high levels of Biotin oral intake (i.e. >5 mg/day) may have falsely decreased Troponin levels. Samples collected within 8 hours of biotin intake may require additional information for diagnosis. [employer] Phone: Interpretation and review of laboratory results AbnormalComVibe Phone: Troponin, High Jcwwkxpiaow55 ng/LHigh0 - 11 ng/LMercy CanDi[employer] Phone: comlsjm on above:High Sensitivity Troponin values cannot be compared with other Troponin methodologies. Patients with high levels of Biotin oral intake (i.e. >5 mg/day) may have falsely decreased Troponin levels. Samples collected within 8 hours of biotin intake may require additional information for diagnosis. [employer] Phone: Troponin, High Psxnrtgbofl63 ng/LHigh0 - 11 ng/LMercy [employer] Phone: compxnb on above:High Sensitivity Troponin values cannot be compared with other Troponin methodologies. Patients with high levels of Biotin oral intake (i.e. >5 mg/day) may have falsely decreased Troponin levels. Samples collected within 8 hours of biotin intake may require additional information for diagnosis. [place] Drugs of Abuse Panelon [phone] Screen Commentsee Hillcrest HospitalComment on above:Result Comment: These drug screen results are for medical purposes only and should not be considered definitive or confirmed. The drug methodology concentration value must be greater than or equal to the cutoff to be reported as positive. Confirmatory testing orders and/or interpretive screening questions can be directed to toxicology at [phone]. The absence of expected drug(s) and/or metabolite(s) may be due to inappropriate timing of specimen collection relative to drug administration, poor drug absorption, diluted/adulterated urine, or limitations of screening testing methodology.Urine Drug ScreenOrdered By: Olivia Thomas on [id number] Screen, UrineNot detectedNegative <1000 ng/mLComVibe Phone: barbiturate Screen, UrNot detectedNegative < 200 ng/mL [employer] Phone: benzodiazepine Screen, UrineNot detectedNegative < 200 ng/mLComVibe Phone: cannabinoid Scrn, UrPositiveAbnormalNegative < 50ng/mL [employer] Phone: cocaine Metabolite Screen, UrinePositiveAbnormal Negative < 300 ng/mLComVibe Phone: drug Screen Comment:see belowComVibe Phone: comment on above:These drug screen results are for medical purposes only and should not be considered definitive or confirmed. The drug methodology concentration value must be greater than or equal to the cutoff to be reported as positive. Confirmatory testing orders and/or interpretive screening questions can be directed to toxicology at [phone]. The absence of expected drug(s) and/or metabolite(s) may be due to inappropriate timing of specimen collection relative to drug administration, poor drug absorption, diluted/adulterated urine, or limitations of screening testing methodology. FENTANYL SCREEN, URINEPositiveAbnormalNegative <1 ng/mLComVibe Phone: comzogm on above:Note: Therapeutic levels of some antipsychotics (e.g., Haloperidol, Risperidone), antidepressants (e.g., Trazadone), and Methamphetamine are known to show cross-reactivity and cause false positive results. Therefore, confirmatory testing for Fentanyl and metabolites should be considered if clinically indicated. Interpretation and review of laboratory resultsAbnormMetwit Phone: Methadone Screen, UrineNot detectedNegative <300 ng/mL [employer] Phone: Opiate Scrn, UrNot detectedNegative < 300ng/mLComVibe Phone: comment on above:Note: The Opiate Screen is not intended to detect Oxycodone.Oxycodone UrineNot detectedNegative <100 ng/mLComVibe Phone: pCP Screen, UrineNot detectedNegative < 25 ng/mLComVibe Phone: [facility] HospitalMobiform Software Inc[facility] Phone: XR CHEST PORTABLEon [id number] CHEST PORTABLE EXAMINATION: ONE XRAY VIEW OF THE CHEST 09/05/2020 4:00 am COMPARISON: None. HISTORY: ORDERING SYSTEM PROVIDED HISTORY: cp TECHNOLOGIST PROVIDED HISTORY: Reason for exam:->cp What reading provider will be dictating this exam?->CRC FINDINGS: Heart size is normal. Pulmonary vasculature is not congested. Mediastinal and hilar contours are acceptable. The lungs are clear. The pleural spaces are clear. There is no pneumothorax. IMPRESSION: There is no acute abnormality seen. Interpreted by: Stacy Yusuf MD Signed by: Stacy Yusuf MD 09/05/20 Final resultNormalSHaverhill Pavilion Behavioral Health HospitalComment on above:Order Comment: Reason for exam:->cpWhat reading provider will be dictating this exam?->CRCXR CHEST PORTABLEOrdered By: Lisa Young on [id number] is no acute abnormality seen.[employer] Phone: eXAMINATION: ONE XRAY VIEW OF THE CHEST 09/05/2020 4:00 am COMPARISON: None. HISTORY: ORDERING SYSTEM PROVIDED HISTORY: cp TECHNOLOGIST PROVIDED HISTORY: Reason for exam:->cp What reading provider will be dictating this exam?->CRC FINDINGS: Heart size is normal. Pulmonary vasculature is not con gested. Mediastinal and hilar contours are acceptable. The lungs are clear. The pleural spaces are clear. There is no pneumothorax.[employer] Phone: edi, M[facility] Incoming Radiant Results From [employer] - 09/05/2020 4:13 AM EDT Formatting of thisnote might be different from the original. EXAMINATION: ONE XRAY VIEW OF THE CHEST 09/05/2020 4:00 am COMPARISON: None. HISTORY: ORDERING SYSTEM PROVIDED HISTORY: cp TECHNOLOGIST PROVIDED HISTORY: Reason for exam:->cp What reading provider will be dictating this exam?->CRC FINDINGS: Heart size is normal. Pulmonary vasculature is not congested. Mediastinal and hilar contours are acceptable. The lungs are clear. The pleural spaces are clear. There is no pneumothorax. IMPRESSION: There is no acute abnormality seen. [employer] Work Phone: [facility] HospitalLooseHead Software Work Phone: XR FOOT LEFT (MIN 3 VIEWS)on [id number] FOOT LEFT (MIN 3 VIEWS)EXAMINATION: THREE XRAY VIEWS OF THE RIGHT FOOT; THREE XRAY VIEWS OF THE LUMBAR SPINE; THREE XRAY VIEWS OF THE LEFT FOOT 09/05/2020 5:22 am; 09/05/2020 5:21 am COMPARISON: None. HISTORY: ORDERING SYSTEM PROVIDED HISTORY: foot pain TECHNOLOGIST PROVIDED HISTORY: Reason for exam:->foot pain What reading provider will be dictating this exam?->CRC; ORDERING SYSTEM PROVIDED HISTORY: back pain TECHNOLOGIST PROVIDED HISTORY: Reason for exam:->back pain What reading provider will be dictating this exam?->CRC FINDINGS: L-spine: No fracture or dislocation. Degenerative disc disease is moderate from L4-S1. Normal soft tissues. Left foot: No fracture or dislocation. Normal soft tissues. No significant arthropathy. Right foot: A contour deformity at the 5th metatarsal head suggests a healed erosion. Clinical correlation recommended. No fracture or dislocation. Normal soft tissues. IMPRESSION: L-spine: Degenerative disc disease from L4-S1. Left foot: Unremarkable. Right foot: Suspected healed erosion at the head of the 5th metacarpal. Consider clinical correlation. Interpreted by: Paul Gu MD Signed by: Paul Gu MD 09/05/20 Final resultNormalSHaverhill Pavilion Behavioral Health HospitalComment on above:Order Comment: Reason for exam:->foot painWhat reading provider will be dictating this exam?-> CRCXR FOOT RIGHT (MIN 3 VIEWS)on [id number] FOOT RIGHT (MIN 3 VIEWS) EXAMINATION: THREE XRAY VIEWS OF THE RIGHT FOOT; THREE XRAY VIEWS OF THE LUMBAR SPINE; THREE XRAY VIEWS OF THE LEFT FOOT 09/05/2020 5:22 am; 09/05/2020 5:21 am COMPARISON: None. HISTORY: ORDERING SYSTEM PROVIDED HISTORY: foot pain TECHNOLOGIST PROVIDED HISTORY: Reason for exam:->foot pain What reading provider will be dictating this exam?->CRC; ORDERING SYSTEM PROVIDED HISTORY: back pain TECHNOLOGIST PROVIDED HISTORY: Reason for exam:->back pain What reading provider will be dictating this exam?->CRC FINDINGS: L-spine: No fracture or dislocation. Degenerative disc disease is moderate from L4-S1. Normal soft tissues. Left foot: No fracture or dislocation. Normal soft tissues. No significant arthropathy. Right foot: A contour deformity at the 5th metatarsal head suggests a healed erosion. Clinical correlation recommended. No fracture or dislocation. Normal soft tissues. IMPRESSION: L-spine: Degenerative disc disease from L4-S1. Left foot: Unremarkable. Right foot: Suspected healed erosion at the head of the 5th metacarpal. Consider clinical correlation. Interpreted by: Paul Gu MD Signed by: Paul Gu MD 09/05/20 Final resultNormalSHaverhill Pavilion Behavioral Health HospitalComment on above:Order Comment: Reason for exam:->foot pain What reading provider will be dictating this exam?->CRCXR LUMBAR SPINE (2-3 VIEWS)on [id number] LUMBAR SPINE (2-3 VIEWS)EXAMINATION: THREE XRAY VIEWS OF THE RIGHT FOOT; THREE XRAY VIEWS OF THE LUMBAR SPINE; THREE XRAY VIEWS OF THE LEFT FOOT 09/05/2020 5:22 am; 09/05/2020 5:21 am COMPARISON: None. HISTORY: ORDERING SYSTEM PROVIDED HISTORY: foot pain TECHNOLOGIST PROVIDED HISTORY: Reason for exam:->foot pain What reading provider will be dictating this exam?->CRC; ORDERING SYSTEM PROVIDED HISTORY: back pain TECHNOLOGIST PROVIDED HISTORY: Reason for exam:->back pain What reading provider will be dictating this exam?->CRC FINDINGS: L-spine: No fracture or dislocation. Degenerative disc disease is moderate from L4-S1. Normal soft tissues. Left foot: No fracture or dislocation. Normal soft tissues. No significant arthropathy. Right foot: A contour deformity at the 5th metatarsal head suggests a healed erosion. Clinical correlation recommended. No fracture or dislocation. Normal soft tissues. IMPRESSION: L-spine: Degenerative disc disease from L4-S1. Left foot: Unremarkable. Right foot: Suspected healed erosion at the head of the 5th metacarpal. Consider clinical correlation. Interpreted by: Paul Gu MD Signed by: Paul Gu MD 09/05/20 Final resultNormMilford Regional Medical CenterCommclaren port huron hospital on above:Order Comment: Reason for exam:->back painWhat reading provider will be dictating this exam?-> CRCXR THORACIC SPINE (3 VIEWS)on [id number] THORACIC SPINE (3 VIEWS) EXAMINATION: THREE XRAY VIEWS OF THE THORACIC SPINE 09/05/2020 5:25 am COMPARISON: None. HISTORY: ORDERING SYSTEM PROVIDED HISTORY: back pain TECHNOLOGIST PROVIDED HISTORY: Reason for exam:->back pain What reading provider will be dictating this exam?->CRC FINDINGS: Very mild degenerative disc disease is evident from T3-T5. No fracture or dislocation. Normal soft tissues. IMPRESSION: Very mild degenerative disc disease. Interpreted by: Paul Gu MD Signed by: Paul Gu MD 09/05/20 Final resultNormMilford Regional Medical CenterComment on above:Order Comment: Reason for exam:->back painWhat reading provider will be dictating this exam?-> CRCXR THORACIC SPINE (3 VIEWS)Ordered By: Lisa Young on [id number] mild degenerative disc disease.[employer] Phone: eXAMINATION: THREE XRAY VIEWS OF THE THORACIC SPINE 09/05/2020 5:25 am COMPARISON: None. HISTORY: ORDERING SYSTEM PROVIDED HISTORY: back pain TECHNOLOGIST PROVIDED HISTORY: Reason for exam:->back pain What reading provider will be dictating this exam?->CRC FINDINGS: Very mild degenerative discdisease is evident from T3-T5. No fracture or dislocation. Normal soft tissues.[employer] Phone: edi, [facility] Incoming Radiant Results From [employer] - 09/05/2020 6:39 AM EDT Formatting of thisnote might be different from the original. EXAMINATION: THREE XRAY VIEWS OF THE THORACIC SPINE 09/05/2020 5:25 am COMPARISON: None. HISTORY: ORDERING SYSTEM PROVIDED HISTORY: back pain TECHNOLOGIST PROVIDED HISTORY: Reason for exam:->back pain What reading provider will be dictating this exam?->CRC FINDINGS: Very mild degenerative disc disease is evident from T3-T5. No fracture or dislocation. Normal soft tissues. IMPRESSION: Very mild degenerative disc disease. [employer] Work Phone: [facility] [employer] Work Phone: GABAPENTIN,URINEon [phone],URINE<5.0 NormalIndiana University Health Starke Hospital on above:Result Comment: INTERPRETIVE INFORMATION: Gabapentin, Urine Positive cutoff: 5.0 ug/mL For medical purposes only; not valid for forensic use. The absence of expected drug(s) and/or drug metabolite(s) may indicate non-compliance, inappropriate timing of specimen collection relative to drug administration, poor drug absorption, diluted/adulterated urine, or limitations of testing. The concentration value must be greater than or equal to the cutoff to be reported as a quantitative result. Interpretive questions should be directed to the laboratory. Test developed and characteristics determined by [facility]. See Compliance Statement B: [employer]/CS Performed By: [facility] [address] [place] [id number] Lumber Tailer: NITHYA Iqbalerformed By: #### ALC #### [facility] [address] [place] [id number] 2019 BY PCRon [id number] 2019,PCRNOT DETECTEDNormalNot DetectedIndiana University Health Starke Hospital on above: Result Comment: . This assay is designed to detect the N, ORF1ab and/or S genes of SARS-CoV-2 via nucleic acid amplification. A Negative (NOT DETECTED) result does not preclude 2019-nCoV infection since the adequacy of sample collection and/or low viral burden may result in presence of viral nucleic acids below the clinical sensitivity of this test method. Negative (NOT DETECTED) result should not be used as the sole basis for treatment or other patient management decisions. Rather negative results should be combined with clinical observations, patient history, and epidemiological information to make patient management decisions. Fact sheet for providers: https://www.fda.gov/media/365830/download Fact sheet for patients: https://www.fda.gov/media/456727/download This test has received FDA Emergency Use Authorization (EUA) and has been verified by [facility] ([facility]). This test is only authorized for the duration of time that circumstances exist to justify the authorization of the emergency use of in vitro diagnostic tests for the detection of SARS-CoV-2 virus and/or diagnosis of COVID-19 infection under section 564(b)(1) of the Act, 21 U.S.C. 360bbb-3(b)(1), unless the authorization is terminated or revoked sooner. [facility] is certified under CLIA-88 as qualified to perform high complexity testing. Testing is performed in the [facility] laboratories located at [id number] [place] [address].Performed By: #### COV19 #### [facility] [address] [facility] [place] [id number] 19 Resultson [id number] 19 ResultsNEGATIVE COVID- 19 Test Coronaviruses are common world-wide and are the cause of many common colds. SARS-COV2 is a new coronavirus that began circulating worldwide in 2019 so we are calling it COVID-19. It has been estimated that four out of five patients with COVID-19 will recover at home without the need for medical attention. Symptoms of COVID-19 include cough, fever, shortness of breath, loss of taste or smell and other flu-like symptoms including chills, sore muscles, sore throat, and headache. Severe illness is more common in older people and people with other health problems such as high blood pressure, obesity, and immune system problems. If the test is positive, you have COVID-19. You will be contacted by the ordering physicians office and instructed to remain on home isolation, in accordance with CDC guidelines. You may also be contacted by the [facility] to see if any of your close contacts may have been exposed to the virus and need to quarantine. If the test is negative, you likely do not have COVID-19 at this time, but you still may have a different illness that can spread to other people (like Influenza, or the Flu) and could still be at risk for getting COVID-19. We recommend that you stay away from other people to limit the spread of illness until your symptoms are improving and you are fever-free for 24 hours without the use of fever lowering medications such as acetaminophen or ibuprofen. No test is 100% accurate so if you are still concerned you may have COVID-19, talk to your doctor about the need to continue to stay away from others. Medicines Acetaminophen (Tylenol and others) is generally safe. Anti-inflammatory medications, such as Ibuprofen (Advil or Motrin) or Naproxen (Aleve) can also be used. Oghy-cpx-hjfekyl cough and cold medicines can be used according to the instructions on the package. Some joxt-vhv-itcabyx medicines also contain acetaminophen. Make sure you are not taking more than your recommended dose For those not hospitalized, there is no specific treatment available for this illness. Antibiotics do not treat Coronaviruses. Follow-Up Follow up with your doctor by scheduling a virtual visit or consider follow-up at one of our urgent care fever clinics. If you are having difficulty breathing, or are very weak and having difficulty standing, this is a medical emergency. Call 911 or have someone take you to the nearest emergency room immediately. If possible, wear a facemask. Additional guidance from the CDC for patients who tested POSITIVE for COVID-19 How to isolate: Isolate yourself in a specific room at home and limit your contact with others. Use a separate bathroom from other members of the household, when possible. Leave home only to get essential medical care. Do not go to work, school or public areas. Avoid using public transportation, ride-sharing, or taxis. Restrict contact with pets and other animals. If you must care for your pet or be around animals while you are sick, wash your hands before and after your interaction and wear a facemask. Make sure that shared spaces in the home have good airflow, such as by an air conditioner or an opened window, weather permitting. Personal Hygiene Procedures: Wear a face mask when in the same room as other people or pets. If a face mask interferes with your breathing, others should wear a mask when sharing space with you. Frequent hand-washing: wash your hands with soap and water for at least 20 seconds. If soap and water are not available, use alcohol-based hand tobacco farmworker. Avoid touching your eyes, nose, and mouth with unwashed hands. Household Hygiene Procedures: Avoid sharing personal household items such as dishes, glassware, cups, eating utensils, towels or bedding with other people or pets in your home. After use, these items should be washed with soap and hot water. Disinfect all high-touch surfaces every day with antibacterial cleaning solutions such as Lysol wipes, bleach, cleansers, etc. High-touch surfaces include tabletops, doorknobs, bathroom fixtures, toilets, phones, keyboards, tablets and bedside tables. Immediately clean any surfaces that may have blood, poop or body fluids on them, using antibacterial cleaning solutions such as Lysol wipes, bleach, cleansers, etc. If clothing or bedding come into contact with blood, poop or body fluids, they should be washed immediately. Follow the directions on the laundry detergent and clothing labels but hot water is recommended when possible. Stopping home isolation precautions: If possible, consult your doctor before stopping home isolation precautions. According to the CDC, you can discontinue home isolation precautions when you have met both of these criteria: Your fever and respiratory symptoms have been gone for 24 hours without the use of any medicines like ibuprofen (Motrin) and acetaminophen (Tylenol). It has been at least 10 days since your symptoms first appeared. If you are immunosuppressed OR you were admitted to the hospital for this, you should wait until it has been 14 days since your symptoms first appeared. Guidelines for Those Living With and/or Caring For Persons with COVID-19: Read and follow all the recommendations outlined in this handout. Do not permit visitors in the home unless there is an essential need. Wear a facemask when in the same room as the patient. Wear a facemask and gloves (disposable if available) when you touch or have contact with the patient's blood, poop, or body fluids including saliva, phlegm, nasal mucus, vomit or urine. Clean or throw away facemasks and gloves after use and wash your hands with soap and water. You will need to quarantine (stay away from others) for 14 days after your last contact with your family member with COVID-19. The person with COVID-19 is considered contagious 48 hours prior to symptoms beginning (or starting with the day of the positive test if they have no symptoms) for a total of 10 days. Additional resources: [facility] COVID Hotline at 0-829-8FJDMKO ( ). COVID-19 Careline at (available 24 hours per day, seven days a week if you or a loved one is experiencing anxiety related to the coronavirus pandemic). Clinical research opportunities: is conducting research studies to develop better testing and treatments for COVID. Do you want any information on how to participate Call [phone]. Websites: hospitals.org or www.CDC.gov Follow My Health / My UHCare (for other test results): Revised 01/08/2020 Electronic Signatures: PSCMServices, PSCMServices (ADMIN) (Signature pending) Authored Last Updated: 06-Feb-2020 01:05 by PSCMSNanoPowersclive, PSCMServices (ADMIN)Normal [facility] HospitalCORONAVIRUS 2019 BY PCRon [id number] Specimen SourceNasal, NasopharyngealNormHealthSouth Deaconess Rehabilitation Hospital Comment on above:Performed By: #### COV19 #### [facility] [address] [place], [place] [address]R-IPCK TBon [id number][NEG]CONTROL SPOT COUNTPassedNormal St. [facility] HospitalComment on above:Performed By: #### TSPOT #### [facility] [address] A SPOT [id number]. [facility] Comment on above:Performed By: #### TSPOT #### [facility] [address] [place], [place] [address]PANEL B SPOT [id number]. [facility] Comment on above:Performed By: #### TSPOT #### [facility] [address] [place], [place] [address]POS CONTROL SPOT COUNTPassedNoIndiana University Health Tipton HospitalComment on above:Performed By: #### TSPOT #### [facility] [address] [place], [place] [address]B-JDPH.TB INTERPNegativeNormalNormal Value: Negative [facility] on above:Result Comment: A negative test result does not exclude the possibility of exposure to or infection with Mycobacterium tuberculosis (M. tuberculosis). Patients with recent exposure to TB infected individuals exhibiting a negative T-SPOT.TB result should be considered for retesting within 6 weeks or if other relevant clinical symptoms indicate. Results from T-SPOT.TB testing must be used in conjunction with each individual's epidemiological history, current medical status, and results of other diagnostic evaluations. The T-SPOT.TB test is qualitative and results are reported as positive, borderline or negative, given that the test controls perform as expected. In line with the Centers for Disease Control and Prevention's 2010 recommendation to report quantitative measurements alongside the qualitative result, the laboratory provides spot counts for informational purposes only. The T-SPOT.TB test should not be interpreted as a quantitative test.Performed By: #### TSPOT #### [facility] [address] [place], [place] [id number] SCREEN TO CONFIRM,URINEon 02-04-2020 BUPRENORPHINE SCREEN,INTERP.See NoteNoIndiana University Health Tipton Hospital Comment on above:Result Comment: INTERPRETIVE INFORMATION: The absence of expected drug(s) and/or drug metabolite(s) may indicate non-compliance, inappropriate timing of specimen collection relative to drug administration, poor drug absorption, diluted/adulterated urine, or limitations of testing. The concentration at which the screening test can detect a drug or metabolite varies. Specimens for which drugs or drug classes are detected by the screen are reflexed to a second, more specific technology (GC/MS and/or LC-MS/MS). The concentration value must be greater than or equal to the cutoff to be reported as positive. Interpretive questions should be directed to the laboratory. For medical purposes only; not valid for forensic use. Test developed and characteristics determined by [facility]. See Compliance Statement B: [employer]/CS Performed By: [facility] [address] [place] [address] Lumber Tailer: NITHYA Iqbalerformed By: #### BUPRS #### [facility] [address] [place], [place] [address]SRSINNVENURQI SCREEN,URINENegativeNormalCutoff 5St. [facility] HospitalComment on above:Performed By: #### BUPRS #### [facility] [address] [place], [place] [address]UGVAUJSgz [id number] [Mass/Vol]mg/dLNormHealthSouth Deaconess Rehabilitation HospitalCommclaren port huron hospital on above:Result Comment: FOR MEDICAL USE ONLY. . REF VALUES <10Performed By: #### ALC #### [address] [address]JLI AND DIFFERENTIALon 01-31-2020% AUTOMATED IMMATURE GRAN0.3 % Normal0.0 - 0.9RobVirginia Hospital Center on above:Result Comment: Immature Granulocyte Count (IG) includes promyelocytes, myelocytes and metamyelocytes but does not include bands. Percent differential counts (%) should be interpreted in the context of the absolute cell counts (cells/L).Performed By: #### CBCDF #### [address] [address]Onvjlnbtj (Bld) [#/Vol]0.04 10*3/uLNormal0.00 - 0.10 [facility] on above:Performed By: #### CBCDF #### [address] [address]Dcubvoihv/100 WBC (Bld)0.6 %Normal0.0 - 2.0RobInova Loudoun HospitalCommclaren port huron hospital on above:Performed By: #### CBCDF #### [address] [address]Acxaikivjgn (Bld) [#/Vol]0.10 10*3/uLNormal0.00 - 0.70 [facility] on above:Performed By: #### CBCDF #### [address] [address]Qxxpfoesoru/100 WBC (Bld)1.5 %Normal0.0 - 6.0RobInova Loudoun HospitalCommclaren port [facility] hospital on above:Performed By: #### CBCDF #### [address] [address]Svgookhwhux distribution width (RBC) [Ratio]13.6 %Fbemjw43.5 - 14.5RobVirgin[facility] Hospital Center on above:Performed By: #### CBCDF #### [address] [address]Kpwpthondf (Bld) [Volume fraction]46.7 %Rjfxwn97.0 - 52.0 [facility] HospitalComment on above:Performed By: #### CBCDF #### [address] [address]Koplwrvilx (Bld) [Mass/Vol]15.0 g/lBChxqzf59.5 - 17.5 [facility] HospitalComment on above:Performed By: #### CBCDF #### [address] [address]Gybprvxozyc (Bld) [#/Vol]2.20 10*3/uLNormal1.20 - 4.80 [facility] HospitalComment on above:Performed By: #### CBCDF #### [address] [address]Qvdmcgmwwzf/100 WBC (Bld)32.1 %Ksvfrk10.0 - 44.0 [facility] HospitalComment on above:Performed By: #### CBCDF #### [address] [address]QLHQ (RBC) [Mass/Vol]32.1 g/sYOfclzx60.0 - 36.0[facility] HospitalComment on above:Performed By: #### CBCDF #### [address] [address]WNR (RBC) [Entitic vol]92 qVDhmvje28 - 100[facility] HospitalComment on above:Performed By: #### CBCDF #### [address] [address]Ygikgcyov (Bld) [#/Vol]0.55 10*3/uLNormal0.10 - 1.00 [facility] HospitalComment on above:Performed By: #### CBCDF #### [address] [address]Lapbhcceo/100 WBC (Bld)8.0 %Normal2.0 - 10.0[facility] HospitalComment on above:Performed By: #### CBCDF #### [address] [address]Adqkgwjajpk (Bld) [#/Vol]3.95 10*3/uLNormal1.20 - 7.70 [facility] HospitalComment on above:Performed By: #### CBCDF #### [address] [address]Tcdbelbzkpy/100 WBC (Bld)57.5 %Ioifzq73.0 - 80.0 [facility] HospitalComment on above:Performed By: #### CBCDF #### [address] [address]Dhuvwxeiq (Bld) [#/Vol]212 10*3/vBApphjh665 - 450 [facility] HospitalComment on above:Performed By: #### CBCDF #### [address] [address]KAU (Bld) [#/Vol]5.07 x10E12/LNormal4.50 - 5.90[facility]agewest [facility] - [facility] - [facility]/[facility] HospitalComment on above:Performed By: #### CBCDF #### [address] [address]BDH (Bld) [#/Vol]6.9 10*3/uLNormal4.4 - 11.3[facility] HospitalComment on above:Performed By: #### CBCDF #### [address] [address]KIDWLZKAEZFSX PANELon 65-30-8718Ttvhtww [Mass/Vol]4.5 g/dL Normal3.4 - 5.0[facility]age[facility] - [facility]/[facility] HospitalComment on above:Performed By: #### CMP #### [address] [address]TCB [Catalytic activity/Vol]55 U/EBmkklz99 - 120 [facility] HospitalComment on above:Performed By: #### CMP #### [address] [address]HNB [Catalytic activity/Vol]13 U/TLgybsa72 - 52R[facility]agewest [facility] - [facility] - [place]/[facility] HospitalComment on above:Result Comment: Patients treated with Sulfasalazine may generate falsely decreased results for ALT.Performed By: #### CMP #### [address] [address]Bcmkl gap [Moles/Vol]11 mmol/ANrofxb21 - 20Robsage[facility] - [facility] CenterComment on above:Performed By: #### CMP #### [address] [address]KFF [Catalytic activity/Vol]13 U/LNormal9 - 39R[facility]age[facility] [place] - [facility]/[facility] CenterComment on above:Performed By: #### CMP #### [address] [address]Gryfsmpui [Mass/Vol]0.3 mg/dLNormal0.0 - 1.2Rob[facility] CenterComment on above:Performed By: #### CMP #### [address] [address]Kvjgfgb [Mass/Vol]8.8 mg/dLNormal8.6 - 10.3[facility] CenterComment on above:Performed By: #### CMP #### [address] [address]Wrenjgtu [Moles/Vol]105 mmol/EVfungn54 - 107RobInova Loudoun HospitalComment on above:Performed By: #### CMP #### [address] [address]Utothyaslj [Mass/Vol]1.04 mg/dLNormal0.50 - 1.30 [facility]Fau[facility] Health SystemComment on above:Performed By: #### CMP #### [address] [address]YHO-DTWONGH AM.>60Normal>60[facility] Comment on above:Result Comment: CALCULATIONS OF ESTIMATED GFR ARE PERFORMED USING THE MDRD STUDY EQUATION FOR THE IDMS-TRACEABLE CREATININE METHODS. CLIN CHEM 2007;53:766-72Performed By: #### CMP #### [address] [address]EVG-KHP AM.>60Normal>60[facility] HospitalComment on above:Performed By: #### CMP #### [address] [address]Xpmkdje [Mass/Vol]108 mg/yVDxau04 - 99[facility] HospitalComment on above:Performed By: #### CMP #### [address] [address]MQN0 (Bld) [Moles/Vol]27 mmol/KNxputp72 - 32[facility] HospitalComment on above:Performed By: #### CMP #### [address] [address]Ysgdjmngs [Moles/Vol]4.0 mmol/LNormal3.5 - 5.3[facility] HospitalComment on above:Performed By: #### CMP #### [address] [address]Bhsagqq [Mass/Vol]6.9 g/dLNormal6.4 - 8.2[facility] CenterComment on above:Performed By: #### CMP #### [address] [address]Qupebk [Moles/Vol]139 mmol/KRqhedg729 - 145[facility] HospitalComment on above:Performed By: #### CMP #### [address] [address]Hwrc nitrogen [Mass/Vol]17 mg/dLNormal6 - 23[facility] HospitalComment on above:Performed By: #### CMP #### [address] [address]VUYE SCREEN,URINE WITH REFLEX TO CONFIRMATIONon 02-01-2020 AMPHETAMINE SCREEN,UNegativeNormalNEGATIVERobsagewest healthcare - [place] - [place]/[facility] Comment on above:Result Comment: CUTOFF LEVEL: 500 NG/ML Cross-reactivity has been reported with high concentrations of the following drugs: buproprion, chloroquine, chlorpromazine, ephedrine, mephentermine, fenfluramine, phentermine, phenylpropanolamine, pseudoephedrine, and propranolol.Performed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
[2025-02-18 18:10] LABS: Anion Gap 10.6; Blood Urea Nitrogen 11.0 mg/dL (7.0-18.0); Calcium 9.2 mg/dL (8.5-10.1); Carbon Dioxide 30.3 mmol/L (21.0-32.0); Chloride 105 mmol/L (98-107); Estimated GFR (African America >60 (>=60 mL/min/1.73m^2); Estimated GFR (Non-African Ame 59 (>=60 mL/min/1.73m^2); Glucose 148 mg/dL (74-106); Potassium 3.9 mmol/L (3.5-5.1); Salicylate 3.7 mg/dL (<=19.9); Sodium 142 mmol/L (136-145)
--- NOTE | 2025-02-18 18:10 | XR_ITS ---
The [place] [id number] Patient Name: YASH JO MRN: [id number] date: 1985 Sex: M Assigned Patient Location: ED.MAIN Current Patient Location: ED.MAIN Accession/Order Number: [id number] Exam Date: 02/18/2025 18:05 Report Date: 02/18/2025 18:29 At the request of: CHARLOTTE VILLEGAS MD Procedure: XR chest 1V XR chest 1V 02/18/2025 6:09 PM SIGNS AND SYMPTOMS: ^OD ^Y PROTOCOL: Frontal radiograph of the chest COMPARISON: None FINDINGS: The trachea is midline. The heart and mediastinal structures are within normal limits. The lung parenchyma is clear. The bony thorax is intact. XR/XR chest 1V IMPRESSION: No acute cardiopulmonary pathology. Impression dictated by: Adriano Gill M.D. 02/18/2025 6:29 PM Dictation Location: [place] [address] Electronically authenticated by: [id number] Y Date: 02/18/2025 18:29
[2025-02-18 18:22] LABS: Acetaminophen <2.0 ug/mL (10.0-30.0)
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
--- NOTE | 2025-02-18 18:27 | CT_ITS ---
The [address] [address] Patient Name: YASH JO MRN: [id number] date: 1985 Sex: M Assigned Patient Location: ED.MAIN Current Patient Location: ED.MAIN Accession/Order Number: [id number] Exam Date: 02/18/2025 21:40 Report Date: 02/18/2025 22:03 At the request of: CHARLOTTE VILLEGAS MD Procedure: CT cervical spine wo con CT head/brain wo con, CT cervical spine wo con 02/18/2025 9:50 PM SIGNS AND SYMPTOMS: ^fall, laceration over right eyebrow TECHNIQUE:Multi-detector CT axial slices of the brain and cervical spine were obtained without IV contrast. Helical,sagittal, coronal, and 3-D reconstructions of the cervical spine were performed. CT was performed with one or more of the following dose reduction techniques: Automated exposure control, adjustment of the mA and/or kV according to patient size, or use of iterative reconstruction technique. COMPARISON: None. FINDINGS: Noncontrast head CT: There is no shift of the midline structures, acute intracranial bleeding, mass effects, or evidence of acute ischemia. The ventricular system is normal in size. The brainstem and the cerebellum are unremarkable. The visualized intraorbital contents and the infratemporal soft tissues show no acute abnormality. Mucosal thickening is noted in the maxillary sinuses, right sphenoid sinus, right frontal sinus, and right ethmoid air cells . The osseous structures in the skull base and the calvarium show no abnormality. There is a subcutaneous scalp hematoma in the left parietal scalp. Soft tissue irregularity is noted along the medial aspect of the right frontal scalp superior to the right orbit consistent with a history of laceration. Cervical spine: There is preservation of the vertebral body heights and intervertebral discs. Facet degenerative changes are present throughout cervical spine. There is uncovertebral joint spurring at C2-C3, C3-C4, and C4-C5 contributing to neural foraminal narrowing. No fractures or dislocations are seen. The alignment of the cervical spine is normal. The craniocervical junction and atlantoaxial joint are within normal limits. The prevertebral soft tissues are within normal limits. The paraspinous soft tissues are within normal limits. The lung apices are unremarkable. CT/CT head/brain wo con IMPRESSION: No acute intracranial pathology. There is a subcutaneous scalp hematoma in the left parietal scalp. Soft tissue irregularity is noted along the medial aspect of the right frontal scalp superior to the right orbit consistent with a history of laceration. No acute cervical spine injury. Degenerative changes are noted in the cervical spine. Impression dictated by: Adriano Gill M.D. 02/18/2025 10:03 PM Dictation Location: [place] [address] Electronically authenticated by: [id number] Y Date: 02/18/2025 22:03
[2025-02-18] MEDS: DIPHTH,PERTUSS(ACELL),TET VAC 0.5 ML SYRINGE IM (18:33)
[2025-02-18 18:55] LABS: Glucose Urine UA NEGATIVE (NEGATIVE)
[2025-02-18 19:04] LABS: Cast Seen? NONE SEEN #/LPF (NONE SEEN); Crystals Seen? None Seen #/HPF (None Seen)
[2025-02-18 19:05] LABS: Urine Culture Indicated YES-FRMC
[2025-02-18 19:07] LABS: Cannabinoid Screen Urine NEGATIVE (NEGATIVE); Methamphetamines Screen Urine NEGATIVE (NEGATIVE); Tricyclic Antidepressant Urine NEGATIVE (NEGATIVE)
[2025-02-18] MEDS: LORAZEPAM 2 MG/ML VIAL IV (19:20)
[2025-02-18] MEDS: 0.9 % SODIUM CHLORIDE 1,000 ML 1000 ML IV (19:23)
--- NOTE | 2025-02-18 19:49 | ED.OVERDOSE1 ---
HPI HPI - Overdose General Chief Complaint: Overdose Stated Complaint: overdose Time Seen by Provider: 02/18/25 17:45 Source: other Source comment: ems report Mode of arrival: ambulance Limitations: altered mental status Limitations comment: Patient lethargic History of Present Illness HPI Narrative: This 39-year-old male was signed out to me at shift change pending reevaluation, CT scan of the head and labs. He is brought to the emergency department by EMS from home. History was obtained from the patient's mother who states he has been taking an excessive amount of hydroxyzine. Apparently he was given a prescription for 90 hydroxyzine in the beginning of January and only 30-some are left. His mom called EMS today out of concern- while being evaluated, he fell out of his bed in room 4 sustaining a laceration. He has an approx 2 cm laceration over his right eye. Patient was seen and evaluated. He is altered and poorly cooperative. CT scan of the head and cervical spine were unable to be performed because of the patient's inability to cooperate with the exam. He was given 2 mg of IV Ativan and placed in soft restraints for his safety and the safety of the staff. I reviewed his EKG which is a sinus rhythm 87 bpm with an RSR pattern existent with right ventricular delay but otherwise normal intervals and no acute findings. An IV had been placed by the nursing staff at the patient pulled it out and additional IV was placed. He was then medicated with IV fluids in addition to the Ativan. Routine labs are reviewed. He has a normal white count and stable hemoglobin. Electrolytes are normal. He is negative for alcohol, aspirin and Tylenol. Chest x-ray does not show any acute findings. Urine is positive for nitrites otherwise negative for infection and urine tox is also negative. Could have the nursing staff he also has prescriptions for trazodone, Latuda and Seroquel. Is unclear if he took multiple medications at once. Poison control was consulted and they requested that a CPK and LFTs be added on to his labs. Repeat EKG was also ordered that is a sinus tachycardia at 115 bpm with a WY of 156, QRS of 84, QT of 334 and QTc of 402. He also suggested using IV Valium for agitation. These were added on and are negative. The patient was given a milligrams of IV Valium. He has been intermittently sleeping and then has brief episodes of agitation. He was remedicated once with an additional 5 mg of IV Valium. He is on the color television console monitor and has episodes of tachycardia but has not become fully responsive. ABG was ordered. He has a normal pH and is not retaining CO2, oxygen was mildly low at 68. Bicarb was normal. Repeat EKG was ordered which is a sinus tachycardia at 120 bpm, WY interval is 152 ms QRS duration 90 ms QT 339 QTc 402 ms-is essentially unchanged Pt remains somnolent and non-verbal, he does respond to painful stimuli and has a strong gag reflex. According to poison control, the somnolent effects of the hydroxyzine can last from 6-12 hours. Repeat labs remain normal. He was signed out to the incoming physician at 7am Related Data Allergies Allergy/AdvReac Type Severity Reaction Status Date / Time No Known Drug Allergies Allergy Verified 02/18/25 17:44 Opioid HPI Opioid Management Most Recent Opioid Data: Ur Phencyclidine Scrn, (NEGATIVE) Negative 02/18/25, 18:10 PFSH PFSH Social History Little interest or pleasure in doing things: not at all Feeling down, depressed, or hopeless: not at all Exam Constitutional Vital Signs, click to edit/add: Last Vital Signs Temp 98.4 F 02/18/25 17:44 Pulse 148 H 02/19/25 19:10 Resp 27 H 02/19/25 19:00 BP 148/101 H 02/19/25 19:00 Pulse Ox 96 02/19/25 19:51 O2 Del Method Room Air 02/19/25 01:36 Course Vital Signs Vital signs: Vital Signs Temperature 98.4 F 02/18/25 17:44 Pulse Rate 88 02/18/25 17:44 Respiratory Rate 18 02/18/25 17:44 Blood Pressure 106/74 02/18/25 17:44 Pulse Oximetry 98 02/18/25 17:44 Oxygen Delivery Method Room Air 02/18/25 17:44 Temperature 98.4 F 02/18/25 17:44 Pulse Rate 148 H 02/19/25 19:10 Respiratory Rate 27 H 02/19/25 19:00 Blood Pressure 148/101 H 02/19/25 19:00 Pulse Oximetry 96 02/19/25 19:51 Oxygen Delivery Method Room Air 02/19/25 01:36 MDM - Overdose Lab Data Attestation: I reviewed the patient's lab results. Labs: Lab Results 02/18/25 02/18/25 02/18/25 Range/Units 17:50 18:10 21:53 WBC 6.2 (4.0-11.0) 10^3/uL RBC 4.40 L (4.70-6.10) 10^6/uL Hgb 12.8 L (14.0-18.0) g/dL Hct 37.9 L (42.0-54.0) % MCV 86.1 (80.0-94.0) fL MCH 29.1 (25.9-34.0) pg MCHC 33.8 (29.9-35.2) g/dL RDW 12.8 (11.0-15.0) % Plt Count 251 (150-450) 10^3/uL MPV 9.3 L (9.5-13.5) fL Neut % (Auto) 57.3 (43.0-75.0) % Lymph % (Auto) 30.0 (20.5-60.0) % Kern % (Auto) 10.6 (1.7-12.0) % Eos % (Auto) 1.1 (0.9-7.0) % Baso % (Auto) 0.5 (0.2-2.0) % Neut # (Auto) 3.5 (1.4-6.5) 10^3/uL Lymph # (Auto) 1.9 (1.2-3.8) 10^3/uL Kern # (Auto) 0.7 (0.3-0.8) 10^3/uL Eos # (Auto) 0.1 (0.0-0.7) 10^3/uL Baso # (Auto) 0.0 (0.0-0.1) 10^3/uL Abs Immat Gran (auto) 0.03 (0.00-0.03) 10^3/uL Imm/Tot Granulo (auto) 0.5 (0.0-0.5) % Puncture Site ABG pH (7.350-7.450) ABG pCO2 (35.0-45.0) mmHg ABG pO2 (80.0-100.0) mmHg ABG HCO3 (22.0-26.0) mmol/L ABG O2 Saturation % ABG Base Excess (-2.0-2.0) mmol/L Brian Test (POSITIVE) Sodium 142 141 (136-145) mmol/L Potassium 3.9 4.0 (3.5-5.1) mmol/L Chloride 105 105 (98-107) mmol/L Carbon Dioxide 30.3 28.4 (21.0-32.0) mmol/L Anion Gap 10.6 11.6 BUN 11.0 10.0 (7.0-18.0) mg/dL Creatinine 1.34 H 1.34 H (0.70-1.30) mg/dL Est GFR ( Amer) >60 >60 (>=60 mL/min/1.73m^2) Est GFR (Non-Af Amer) 59 L 59 L (>=60 mL/min/1.73m^2) BUN/Creatinine Ratio 8.2 7.5 Glucose 148 H 165 H (74-106) mg/dL Lactate (0.4-2.0) mmol/L Calcium 9.2 9.2 (8.5-10.1) mg/dL Total Bilirubin 0.2 0.2 (0.2-1.0) mg/dL Direct Bilirubin <0.1 (0.0-0.2) mg/dL AST 18 20 (15-37) U/L ALT 35 36 (16-63) U/L Alkaline Phosphatase 77 84 (46-116) U/L Total Creatine Kinase 248 (39-308) U/L Total Protein 6.6 7.1 (6.4-8.2) g/dL Albumin 3.6 4.0 (3.4-5.0) g/dL Globulin 3.0 3.1 g/dL Albumin/Globulin Ratio 1.2 1.3 Urine Color Lt. yellow (YELLOW) Urine Clarity Clear (CLEAR) Urine pH 6.0 (5.0-9.0) Ur Specific Rigby <=1.005 A (1.005-1.025) Urine Protein Negative (NEG/TRACE) mg/dL Urine Glucose (UA) Negative (NEGATIVE) mg/dL Urine Ketones Negative (NEGATIVE) mg/dL Urine Occult Blood Negative (NEGATIVE) Urine Nitrite Positive A (NEGATIVE) Urine Bilirubin Negative (NEGATIVE) Urine Urobilinogen 0.2 (0.2-1.0) EU/dL Ur Leukocyte Esterase Trace A (NEGATIVE) Urine RBC None seen (0-2) #/HPF Urine WBC 0-2 A (NONE SEEN) #/HPF Ur Squamous Epith Cells None seen (NONE/RARE) #/LPF Urine Crystals None seen (None Seen) #/HPF Urine Bacteria None seen (NONE SEEN) #/HPF Urine Casts None seen (NONE SEEN) #/LPF Urine Mucus None seen (NONE SEEN) Ur Culture Indicated? Yes-[facility] [place] Salicylates 3.7 3.8 (<=19.9) mg/dL Urine Opiates Screen Negative (NEGATIVE) Ur Buprenorphine Scrn Negative (NEGATIVE) Ur Oxycodone Screen Negative (NEGATIVE) Urine Methadone Screen Negative (NEGATIVE) Acetaminophen <2.0 L <2.0 L (10.0-30.0) ug/mL Ur Barbiturates Screen Negative (NEGATIVE) U Tricyclic Antidepress Negative (NEGATIVE) Ur Phencyclidine Scrn Negative (NEGATIVE) Ur Amphetamines Screen Negative (NEGATIVE) U Methamphetamines Scrn Negative (NEGATIVE) U Benzodiazepines Scrn Negative (NEGATIVE) Urine Cocaine Screen Negative (NEGATIVE) U Cannabinoids Screen Negative (NEGATIVE) Ethanol Quant <3 mg/dL 02/19/25 02/19/25 02/19/25 Range/Units 01:22 05:00 13:18 WBC 9.0 (4.0-11.0) 10^3/uL RBC 4.58 L (4.70-6.10) 10^6/uL Hgb 13.2 L (14.0-18.0) g/dL Hct 39.1 L (42.0-54.0) % MCV 85.4 (80.0-94.0) fL MCH 28.8 (25.9-34.0) pg MCHC 33.8 (29.9-35.2) g/dL RDW 12.9 (11.0-15.0) % Plt Count 261 (150-450) 10^3/uL MPV 8.9 L (9.5-13.5) fL Neut % (Auto) 71.2 (43.0-75.0) % Lymph % (Auto) 18.9 L (20.5-60.0) % Kern % (Auto) 8.8 (1.7-12.0) % Eos % (Auto) 0.4 L (0.9-7.0) % Baso % (Auto) 0.4 (0.2-2.0) % Neut # (Auto) 6.4 (1.4-6.5) 10^3/uL Lymph # (Auto) 1.7 (1.2-3.8) 10^3/uL Kern # (Auto) 0.8 (0.3-0.8) 10^3/uL Eos # (Auto) 0.0 (0.0-0.7) 10^3/uL Baso # (Auto) 0.0 (0.0-0.1) 10^3/uL Abs Immat Gran (auto) 0.03 (0.00-0.03) 10^3/uL Imm/Tot Granulo (auto) 0.3 (0.0-0.5) % Puncture Site R radial ABG pH 7.438 (7.350-7.450) ABG pCO2 38.3 (35.0-45.0) mmHg ABG pO2 68.4 L (80.0-100.0) mmHg ABG HCO3 25.9 (22.0-26.0) mmol/L ABG O2 Saturation 95.1 % ABG Base Excess 1.7 (-2.0-2.0) mmol/L Brian Test Positive (POSITIVE) Sodium 141 (136-145) mmol/L Potassium 3.8 (3.5-5.1) mmol/L Chloride 106 (98-107) mmol/L Carbon Dioxide 27.0 (21.0-32.0) mmol/L Anion Gap 11.8 BUN 9.0 (7.0-18.0) mg/dL Creatinine 1.30 (0.70-1.30) mg/dL Est GFR ( Amer) >60 (>=60 mL/min/1.73m^2) Est GFR (Non-Af Amer) >60 (>=60 mL/min/1.73m^2) BUN/Creatinine Ratio 6.9 Glucose 161 H (74-106) mg/dL Lactate 1.0 (0.4-2.0) mmol/L Calcium 8.6 (8.5-10.1) mg/dL Total Bilirubin 0.2 0.3 (0.2-1.0) mg/dL Direct Bilirubin 0.1 (0.0-0.2) mg/dL AST 18 22 (15-37) U/L ALT 31 32 (16-63) U/L Alkaline Phosphatase 81 78 (46-116) U/L Total Creatine Kinase 402 H* (39-308) U/L Total Protein 6.7 6.4 (6.4-8.2) g/dL Albumin 3.8 3.5 (3.4-5.0) g/dL Globulin 2.9 2.9 g/dL Albumin/Globulin Ratio 1.3 1.2 Urine Color (YELLOW) Urine Clarity (CLEAR) Urine pH (5.0-9.0) Ur Specific Rigby (1.005-1.025) Urine Protein (NEG/TRACE) mg/dL Urine Glucose (UA) (NEGATIVE) mg/dL Urine Ketones (NEGATIVE) mg/dL Urine Occult Blood (NEGATIVE) Urine Nitrite (NEGATIVE) Urine Bilirubin (NEGATIVE) Urine Urobilinogen (0.2-1.0) EU/dL Ur Leukocyte Esterase (NEGATIVE) Urine RBC (0-2) #/HPF Urine WBC (NONE SEEN) #/HPF Ur Squamous Epith Cells (NONE/RARE) #/LPF Urine Crystals (None Seen) #/HPF Urine Bacteria (NONE SEEN) #/HPF Urine Casts (NONE SEEN) #/LPF Urine Mucus (NONE SEEN) Ur Culture Indicated? Salicylates (<=19.9) mg/dL Urine Opiates Screen (NEGATIVE) Ur Buprenorphine Scrn (NEGATIVE) Ur Oxycodone Screen (NEGATIVE) Urine Methadone Screen (NEGATIVE) Acetaminophen (10.0-30.0) ug/mL Ur Barbiturates Screen (NEGATIVE) U Tricyclic Antidepress (NEGATIVE) Ur Phencyclidine Scrn (NEGATIVE) Ur Amphetamines Screen (NEGATIVE) U Methamphetamines Scrn (NEGATIVE) U Benzodiazepines Scrn (NEGATIVE) Urine Cocaine Screen (NEGATIVE) U Cannabinoids Screen (NEGATIVE) Ethanol Quant mg/dL Imaging Data CT scan - head: Radiologist's impression: ITS Impressions Chest X-Ray 02/18/25 18:10 IMPRESSION: No acute cardiopulmonary pathology. Impression dictated by: Adriano Gill M.D. 02/18/2025 6:29 PM Dictation Location: [place] [address] Electronically authenticated by: [id number] Y Date: 02/18/2025 18:[address] 02/18/25 18:27 IMPRESSION: No acute intracranial pathology. There is a subcutaneous scalp hematoma in the left parietal scalp. Soft tissue irregularity is noted along the medial aspect of the right frontal scalp superior to the right orbit consistent with a history of laceration. No acute cervical spine injury. Degenerative changes are noted in the cervical spine. Impression dictated by: Adriano Gill M.D. 02/18/2025 10:03 PM Dictation Location: [facility] Electronically authenticated by: [id number] Y Date: 02/18/2025 22:[address] 02/18/25 18:27 IMPRESSION: No acute intracranial pathology. There is a subcutaneous scalp hematoma in the left parietal scalp. Soft tissue irregularity is noted along the medial aspect of the right frontal scalp superior to the right orbit consistent with a history of laceration. No acute cervical spine injury. Degenerative changes are noted in the cervical spine. Impression dictated by: Adriano Gill M.D. 02/18/2025 10:03 PM Dictation Location: [facility] Electronically authenticated by: [id number] Y Date: 02/18/2025 22:03 Chest X-Ray 02/19/25 21:45 IMPRESSION: No acute cardiopulmonary pathology. Impression dictated by: Adriano Gill M.D. 02/19/2025 10:24 PM Dictation Location: [employer] Electronically authenticated by: [id number] Y Date: 02/19/2025 22:24 ECG Data Attestation: I personally reviewed and interpreted this ECG as follows: (#2; Sinus tachycardia at 150 bpm, WY interval 156 ms, QRS duration 84, QT 334, QTc 402, normal axis, no acute ST segment elevation) Discharge Plan Discharge Chief Complaint: Overdose Clinical Impression: Drug overdose, Closed head injury, Fall from standing, Altered mental status, Acute psychosis Patient Disposition: [facility] Time of Disposition Decision: 23:30 Procedures ED Procedure Instructions Procedures Procedures: Facial laceration repair; the patient's right eyebrow laceration was cleaned with normal saline and wound edges were infiltrated with 1% lidocaine, 7, 4-0 Ethilon sutures were placed into the laceration with good wound edge approximation. Patient tolerated procedure well.
[2025-02-18 20:54] LABS: Alanine Aminotransferase 35 U/L (16-63); Albumin Globulin Ratio 1.2; Albumin Level 3.6 g/dL (3.4-5.0); Alkaline Phosphatase 77 U/L (46-116); Aspartate Amino Transferase 18 U/L (15-37); Creatine Kinase 248 U/L (39-308); Globulin 3.0 g/dL; Total Protein 6.6 g/dL (6.4-8.2)
[2025-02-18] MEDS: DIAZEPAM 10 MG/2 ML SYRINGE 5 MG IV (20:54)
[2025-02-18 22:14] LABS: Alanine Aminotransferase 36 U/L (16-63); Albumin Globulin Ratio 1.3; Albumin Level 4.0 g/dL (3.4-5.0); Alkaline Phosphatase 84 U/L (46-116); Anion Gap 11.6; Aspartate Amino Transferase 20 U/L (15-37); Blood Urea Nitrogen 10.0 mg/dL (7.0-18.0); Calcium 9.2 mg/dL (8.5-10.1); Carbon Dioxide 28.4 mmol/L (21.0-32.0); Chloride 105 mmol/L (98-107); Estimated GFR (African America >60 (>=60 mL/min/1.73m^2); Estimated GFR (Non-African Ame 59 (>=60 mL/min/1.73m^2); Globulin 3.1 g/dL; Glucose 165 mg/dL (74-106); Potassium 4.0 mmol/L (3.5-5.1); Salicylate 3.8 mg/dL (<=19.9); Sodium 141 mmol/L (136-145); Total Protein 7.1 g/dL (6.4-8.2)
--- NOTE | 2025-02-18 22:14 | ECG_ITS ---
[facility] Test Date: 2025-02-18 Pat Name: YASH JO Department: Room: - Gender: Male Processing Supervisor: : 1985 Requested By: [id number] Order Number: [id number] Reading MD: FANTA MELCHOR M.D. Measurements Intervals [place] Rate: 115 P: 83 [place]: 156 QRS: 94 QRSD: 84 T: 67 QT: 334 QTc: 402 Interpretive Statements 1120 Sinus tachycardia 7102 Moderate right axis deviation 0102 ARTIFACT PRESENT 9140 abnormal rhythm ECG Compared to ECG 02/18/2025 17:47:58 Right-axis deviation now present Electronically Signed On 02-19-2025 19:19:26 EST by FANTA MELCHOR M.D.
[2025-02-18 22:17] LABS: Acetaminophen <2.0 ug/mL (10.0-30.0)
[2025-02-19] VITALS (148 sets, daily range): BP systolic 101–160; BP diastolic 66–115; PULSE 88–148; O2SAT 83–100
[2025-02-19] MEDS: LIDOCAINE HCL 1% 100 MG/10 ML MDV INJ (00:58)
[2025-02-19] MEDS: DIAZEPAM 10 MG/2 ML SYRINGE 5 MG IV (01:07)
[2025-02-19 01:29] LABS: ABG PCO2 38.3 mmHg (35.0-45.0); HCO3 ABG 25.9 mmol/L (22.0-26.0); PO2 ABG 68.4 mmHg (80.0-100.0)
[2025-02-19 01:30] LABS: Allen Test POSITIVE (POSITIVE); O2 Mode ROOM AIR; Oxygen Saturation ABG 95.1 %; Puncture Site R RADIAL
--- NOTE | 2025-02-19 02:41 | ECG_ITS ---
[facility] Test Date: 2025-02-19 Pat Name: YASH JO Department: Room: - Gender: Male Manager Portable: : 1985 Requested By: [id number] Order Number: [id number] Reading MD: FANTA MELCHOR M.D. Measurements Intervals [place] Rate: 121 P: 69 [place]: 152 QRS: 88 QRSD: 90 T: 61 QT: 330 QTc: 402 Interpretive Statements 1120 Sinus tachycardia 1970 with occasional ectopic premature complexes 9140 abnormal rhythm ECG Compared to ECG 02/18/2025 22:22:42 Right-axis deviation no longer present Electronically Signed On 02-19-2025 19:19:36 EST by FANTA MELCHOR M.D.
[2025-02-19] MEDS: 0.9 % SODIUM CHLORIDE 1,000 ML 100 ML IV (02:45)
[2025-02-19 05:13] LABS: Hematocrit 39.1 % (42.0-54.0); Hemoglobin 13.2 g/dL (14.0-18.0); Immature Granulocytes Abs Auto 0.03 10^3/uL (0.00-0.03); Immature Granulocytes Pct Auto 0.3 % (0.0-0.5); Lymphocytes Absolute Auto 1.7 10^3/uL (1.2-3.8); Mean Corpuscular HGB Conc 33.8 g/dL (29.9-35.2); Mean Corpuscular Hemoglobin 28.8 pg (25.9-34.0); Mean Corpuscular Volume 85.4 fL (80.0-94.0); Platelet Count 261 10^3/uL (150-450); Red Blood Count 4.58 10^6/uL (4.70-6.10); White Blood Count 9.0 10^3/uL (4.0-11.0)
[2025-02-19 05:29] LABS: Alanine Aminotransferase 31 U/L (16-63); Albumin Globulin Ratio 1.3; Albumin Level 3.8 g/dL (3.4-5.0); Alkaline Phosphatase 81 U/L (46-116); Anion Gap 11.8; Aspartate Amino Transferase 18 U/L (15-37); Blood Urea Nitrogen 9.0 mg/dL (7.0-18.0); Calcium 8.6 mg/dL (8.5-10.1); Carbon Dioxide 27.0 mmol/L (21.0-32.0); Chloride 106 mmol/L (98-107); Estimated GFR (African America >60 (>=60 mL/min/1.73m^2); Estimated GFR (Non-African Ame >60 (>=60 mL/min/1.73m^2); Globulin 2.9 g/dL; Glucose 161 mg/dL (74-106); Potassium 3.8 mmol/L (3.5-5.1); Sodium 141 mmol/L (136-145); Total Protein 6.7 g/dL (6.4-8.2)
[2025-02-19 05:31] LABS: Lactate/Lactic Acid 1.0 mmol/L (0.4-2.0)
--- NOTE | 2025-02-19 07:18 | PC.NURSE ---
medical underwriter to bedside during the shift report. medical underwriter spoke with Dr. avalos and states he does not need to remain in the restraints. Teri BROWNING sitter at bedside 1:1. siderails up x 2 pts call light in reach will continue plan of care
--- NOTE | 2025-02-19 10:04 | PC.NURSE ---
pts mother at bedside dr avalos aware that they would like to speak with doc will continue plan of care
--- NOTE | 2025-02-19 10:27 | PC.NURSE ---
pts mother and friend left pts room and states they will come back later Dr Alvarado updated pts family all questions answered/ addressed will continue plan of care
--- NOTE | 2025-02-19 11:09 | PC.NURSE ---
pt was attempting to sit up and get up out of bed pt tried scooting himself down towards the end of the bed program writer tried redirecting pt pt states he wants to leave pt not willing to open eyes or follow commands will continue plan of care
[2025-02-19] MEDS: LORAZEPAM 2 MG/ML VIAL 1 MG IV (11:13)
--- NOTE | 2025-02-19 11:47 | PC.NURSE ---
telegraphic typewriter repairer spoke with rep from poison control will continue plan of care
[2025-02-19] MEDS: 0.9 % SODIUM CHLORIDE 1,000 ML 1000 ML IV (11:59)
[2025-02-19 13:39] LABS: Alanine Aminotransferase 32 U/L (16-63); Albumin Globulin Ratio 1.2; Albumin Level 3.5 g/dL (3.4-5.0); Alkaline Phosphatase 78 U/L (46-116); Globulin 2.9 g/dL; Total Protein 6.4 g/dL (6.4-8.2)
[2025-02-19 13:49] LABS: Aspartate Amino Transferase 22 U/L (15-37)
[2025-02-19 13:52] LABS: Creatine Kinase 402 U/L (39-308)
[2025-02-19] MEDS: 0.9 % SODIUM CHLORIDE 1,000 ML 200 ML IV (14:34)
--- NOTE | 2025-02-19 17:56 | PC.NURSE ---
service writer advisor and giovanni to bedside to do a full linen change due to pt soiling himself pt placed in a clean brief sitter remains at bedside pt remains in soft restraints bed remains in lowest position and call light in reach will continue plan of care
--- NOTE | 2025-02-19 18:15 | PC.NURSE ---
pts mother at bedside with pt
--- NOTE | 2025-02-19 18:32 | ED_ITS ---
HPI HPI - General Adult General Chief complaint: Overdose Stated complaint: overdose Time Seen by Provider: 02/18/25 17:45 Source: other Source information: ems report Mode of arrival: ambulance Limitations: altered mental status Limitations comment: Patient lethargic History of Present Illness HPI narrative: 39-year-old male had presented to the emergency department yesterday and was initially seen by me and then signed out to Dr. Killian. The patient was signed back to me this morning at change of shift. Related Data Allergies Allergy/AdvReac Type Severity Reaction Status Date / Time No Known Drug Allergies Allergy Verified 02/18/25 17:44 Opioid HPI Opioid Management Most Recent Opioid Data: Ur Phencyclidine Scrn, (NEGATIVE) Negative , 18:10 PFSH PFSH Social History Little interest or pleasure in doing things: not at all Feeling down, depressed, or hopeless: not at all Exam Constitutional Vital Signs, click to edit/add: Last Vital Signs Temp 98.4 F 02/18/25 17:44 Pulse 117 H 02/19/25 17:10 Resp 22 H 02/19/25 17:10 BP 157/100 H 02/19/25 16:00 Pulse Ox 98 02/19/25 17:00 O2 Del Method Room Air 02/19/25 01:36 Course Vital Signs Vital signs: Vital Signs Temperature 98.4 F 02/18/25 17:44 Pulse Rate 88 02/18/25 17:44 Respiratory Rate 18 02/18/25 17:44 Blood Pressure 106/74 02/18/25 17:44 Pulse Oximetry 98 02/18/25 17:44 Oxygen Delivery Method Room Air 02/18/25 17:44 Temperature 98.4 F 02/18/25 17:44 Pulse Rate 117 H 02/19/25 17:10 Respiratory Rate 22 H 02/19/25 17:10 Blood Pressure 157/100 H 02/19/25 16:00 Pulse Oximetry 98 02/19/25 17:00 Oxygen Delivery Method Room Air 02/19/25 01:36 Medical Decision Making MDM Narrative Medical decision making narrative: The patient has been sleeping most of the day here in the emergency department and required physical restraints. He was given IV fluids and blood work showed his CPK to be minimally elevated at just over 400. He is now waking up and has been belligerent and using foul language towards the staff. His mother has been here twice and I have updated her on his course of care. The patient will need psychiatric evaluation when he is at the level where he could talk to them. Lab Data Lab results reviewed: Yes I reviewed the patient's lab results Labs: Lab Results 02/18/25 02/18/25 02/18/25 Range/Units 17:50 18:10 21:53 WBC 6.2 (4.0-11.0) 10^3/uL RBC 4.40 L (4.70-6.10) 10^6/uL Hgb 12.8 L (14.0-18.0) g/dL Hct 37.9 L (42.0-54.0) % MCV 86.1 (80.0-94.0) fL MCH 29.1 (25.9-34.0) pg MCHC 33.8 (29.9-35.2) g/dL RDW 12.8 (11.0-15.0) % Plt Count 251 (150-450) 10^3/uL MPV 9.3 L (9.5-13.5) fL Neut % (Auto) 57.3 (43.0-75.0) % Lymph % (Auto) 30.0 (20.5-60.0) % [place] % (Auto) 10.6 (1.7-12.0) % Eos % (Auto) 1.1 (0.9-7.0) % Baso % (Auto) 0.5 (0.2-2.0) % Neut # (Auto) 3.5 (1.4-6.5) 10^3/uL Lymph # (Auto) 1.9 (1.2-3.8) 10^3/uL [place] # (Auto) 0.7 (0.3-0.8) 10^3/uL Eos # (Auto) 0.1 (0.0-0.7) 10^3/uL Baso # (Auto) 0.0 (0.0-0.1) 10^3/uL Abs Immat Gran (auto) 0.03 (0.00-0.03) 10^3/uL Imm/Tot Granulo (auto) 0.5 (0.0-0.5) % Puncture Site ABG pH (7.350-7.450) ABG pCO2 (35.0-45.0) mmHg ABG pO2 (80.0-100.0) mmHg ABG HCO3 (22.0-26.0) mmol/L ABG O2 Saturation % ABG Base Excess (-2.0-2.0) mmol/L Brian Test (POSITIVE) Sodium 142 141 (136-145) mmol/L Potassium 3.9 4.0 (3.5-5.1) mmol/L Chloride 105 105 (98-107) mmol/L Carbon Dioxide 30.3 28.4 (21.0-32.0) mmol/L Anion Gap 10.6 11.6 BUN 11.0 10.0 (7.0-18.0) mg/dL Creatinine 1.34 H 1.34 H (0.70-1.30) mg/dL Est GFR ( Amer) >60 >60 (>=60 mL/min/1.73m^2) Est GFR (Non-Af Amer) 59 L 59 L (>=60 mL/min/1.73m^2) BUN/Creatinine Ratio 8.2 7.5 Glucose 148 H 165 H (74-106) mg/dL Lactate (0.4-2.0) mmol/L Calcium 9.2 9.2 (8.5-10.1) mg/dL Total Bilirubin 0.2 0.2 (0.2-1.0) mg/dL Direct Bilirubin <0.1 (0.0-0.2) mg/dL AST 18 20 (15-37) U/L ALT 35 36 (16-63) U/L Alkaline Phosphatase 77 84 (46-116) U/L Total Creatine Kinase 248 (39-308) U/L Total Protein 6.6 7.1 (6.4-8.2) g/dL Albumin 3.6 4.0 (3.4-5.0) g/dL Globulin 3.0 3.1 g/dL Albumin/Globulin Ratio 1.2 1.3 Urine Color Lt. yellow (YELLOW) Urine Clarity Clear (CLEAR) Urine pH 6.0 (5.0-9.0) Ur Specific [place] <=1.005 A (1.005-1.025) Urine Protein Negative (NEG/TRACE) mg/dL Urine Glucose (UA) Negative (NEGATIVE) mg/dL Urine Ketones Negative (NEGATIVE) mg/dL Urine Occult Blood Negative (NEGATIVE) Urine Nitrite Positive A (NEGATIVE) Urine Bilirubin Negative (NEGATIVE) Urine Urobilinogen 0.2 (0.2-1.0) EU/dL Ur Leukocyte Esterase Trace A (NEGATIVE) Urine RBC None seen (0-2) #/HPF Urine WBC 0-2 A (NONE SEEN) #/HPF Ur Squamous Epith Cells None seen (NONE/RARE) #/LPF Urine Crystals None seen (None Seen) #/HPF Urine Bacteria None seen (NONE SEEN) #/HPF Urine Casts None seen (NONE SEEN) #/LPF Urine Mucus None seen (NONE SEEN) Ur Culture Indicated? Yes-[facility] [place] Salicylates 3.7 3.8 (<=19.9) mg/dL Urine Opiates Screen Negative (NEGATIVE) Ur Buprenorphine Scrn Negative (NEGATIVE) Ur Oxycodone Screen Negative (NEGATIVE) Urine Methadone Screen Negative (NEGATIVE) Acetaminophen <2.0 L <2.0 L (10.0-30.0) ug/mL Ur Barbiturates Screen Negative (NEGATIVE) U Tricyclic Antidepress Negative (NEGATIVE) Ur Phencyclidine Scrn Negative (NEGATIVE) Ur Amphetamines Screen Negative (NEGATIVE) U Methamphetamines Scrn Negative (NEGATIVE) U Benzodiazepines Scrn Negative (NEGATIVE) Urine Cocaine Screen Negative (NEGATIVE) U Cannabinoids Screen Negative (NEGATIVE) Ethanol Quant <3 mg/dL 02/19/25 02/19/25 02/19/25 Range/Units 01:22 05:00 13:18 WBC 9.0 (4.0-11.0) 10^3/uL RBC 4.58 L (4.70-6.10) 10^6/uL Hgb 13.2 L (14.0-18.0) g/dL Hct 39.1 L (42.0-54.0) % MCV 85.4 (80.0-94.0) fL MCH 28.8 (25.9-34.0) pg MCHC 33.8 (29.9-35.2) g/dL RDW 12.9 (11.0-15.0) % Plt Count 261 (150-450) 10^3/uL MPV 8.9 L (9.5-13.5) fL Neut % (Auto) 71.2 (43.0-75.0) % Lymph % (Auto) 18.9 L (20.5-60.0) % [place] % (Auto) 8.8 (1.7-12.0) % Eos % (Auto) 0.4 L (0.9-7.0) % Baso % (Auto) 0.4 (0.2-2.0) % Neut # (Auto) 6.4 (1.4-6.5) 10^3/uL Lymph # (Auto) 1.7 (1.2-3.8) 10^3/uL [place] # (Auto) 0.8 (0.3-0.8) 10^3/uL Eos # (Auto) 0.0 (0.0-0.7) 10^3/uL Baso # (Auto) 0.0 (0.0-0.1) 10^3/uL Abs Immat Gran (auto) 0.03 (0.00-0.03) 10^3/uL Imm/Tot Granulo (auto) 0.3 (0.0-0.5) % Puncture Site R radial ABG pH 7.438 (7.350-7.450) ABG pCO2 38.3 (35.0-45.0) mmHg ABG pO2 68.4 L (80.0-100.0) mmHg ABG HCO3 25.9 (22.0-26.0) mmol/L ABG O2 Saturation 95.1 % ABG Base Excess 1.7 (-2.0-2.0) mmol/L Brian Test Positive (POSITIVE) Sodium 141 (136-145) mmol/L Potassium 3.8 (3.5-5.1) mmol/L Chloride 106 (98-107) mmol/L Carbon Dioxide 27.0 (21.0-32.0) mmol/L Anion Gap 11.8 BUN 9.0 (7.0-18.0) mg/dL Creatinine 1.30 (0.70-1.30) mg/dL Est GFR ( Amer) >60 (>=60 mL/min/1.73m^2) Est GFR (Non-Af Amer) >60 (>=60 mL/min/1.73m^2) BUN/Creatinine Ratio 6.9 Glucose 161 H (74-106) mg/dL Lactate 1.0 (0.4-2.0) mmol/L Calcium 8.6 (8.5-10.1) mg/dL Total Bilirubin 0.2 0.3 (0.2-1.0) mg/dL Direct Bilirubin 0.1 (0.0-0.2) mg/dL AST 18 22 (15-37) U/L ALT 31 32 (16-63) U/L Alkaline Phosphatase 81 78 (46-116) U/L Total Creatine Kinase 402 H* (39-308) U/L Total Protein 6.7 6.4 (6.4-8.2) g/dL Albumin 3.8 3.5 (3.4-5.0) g/dL Globulin 2.9 2.9 g/dL Albumin/Globulin Ratio 1.3 1.2 Urine Color (YELLOW) Urine Clarity (CLEAR) Urine pH (5.0-9.0) Ur Specific [place] (1.005-1.025) Urine Protein (NEG/TRACE) mg/dL Urine Glucose (UA) (NEGATIVE) mg/dL Urine Ketones (NEGATIVE) mg/dL Urine Occult Blood (NEGATIVE) Urine Nitrite (NEGATIVE) Urine Bilirubin (NEGATIVE) Urine Urobilinogen (0.2-1.0) EU/dL Ur Leukocyte Esterase (NEGATIVE) Urine RBC (0-2) #/HPF Urine WBC (NONE SEEN) #/HPF Ur Squamous Epith Cells (NONE/RARE) #/LPF Urine Crystals (None Seen) #/HPF Urine Bacteria (NONE SEEN) #/HPF Urine Casts (NONE SEEN) #/LPF Urine Mucus (NONE SEEN) Ur Culture Indicated? Salicylates (<=19.9) mg/dL Urine Opiates Screen (NEGATIVE) Ur Buprenorphine Scrn (NEGATIVE) Ur Oxycodone Screen (NEGATIVE) Urine Methadone Screen (NEGATIVE) Acetaminophen (10.0-30.0) ug/mL Ur Barbiturates Screen (NEGATIVE) U Tricyclic Antidepress (NEGATIVE) Ur Phencyclidine Scrn (NEGATIVE) Ur Amphetamines Screen (NEGATIVE) U Methamphetamines Scrn (NEGATIVE) U Benzodiazepines Scrn (NEGATIVE) Urine Cocaine Screen (NEGATIVE) U Cannabinoids Screen (NEGATIVE) Ethanol Quant mg/dL Discharge Plan Discharge Patient Disposition: Still a Patient
[2025-02-19] MEDS: ZIPRASIDONE MESYLATE 20 MG VIAL IM (19:28)
[2025-02-19] MEDS: WATER FOR INJECTION, STERILE 20 ML VIAL INJ (21:13)
--- NOTE | 2025-02-19 21:45 | XR_ITS ---
[place] [id number] Patient Name: YASH JO MRN: [id number] date: 1985 Sex: M Assigned Patient Location: ER Current Patient Location: ER Accession/Order Number: [id number] Exam Date: 02/19/2025 21:47 Report Date: 02/19/2025 22:24 At the request of: JAMES JEFFREY MD Procedure: XR chest 1V XR chest 1V 02/19/2025 9:54 PM SIGNS AND SYMPTOMS: ^cough ^Y PROTOCOL: Frontal radiograph of the chest COMPARISON: 02/18/2025 FINDINGS: The trachea is midline. The heart and mediastinal structures are within normal limits. The lung parenchyma is clear. The bony thorax is intact. XR/XR chest 1V IMPRESSION: No acute cardiopulmonary pathology. Impression dictated by: Adriano Gill M.D. 02/19/2025 10:24 PM Dictation Location: [place] [address] Electronically authenticated by: [id number] Y Date: 02/19/2025 22:24
[2025-02-20 01:57] VITALS: BP 112/66; PULSE 56; TEMP 37.2; O2SAT 98
== END 2025-02-20 02:15 ==
PROVIDERS: Emergency Medicine; Emergency Provider Emergency Medicine
DX: T43.591A Poisoning by other antipsychotics and neuroleptics, accidental (unintentional), initial encounter (principal); F23 Brief psychotic disorder; R41.82 Altered mental status, unspecified; S01.111A Laceration without foreign body of right eyelid and periocular area, initial encounter; W06.XXXA Fall from bed, initial encounter; Y92.230 Patient room in hospital as the place of occurrence of the external cause; S09.8XXA Other specified injuries of head, initial encounter; Z23 Encounter for immunization
CPT/HCPCS: 12011; 36415; 36600; 51702; 70450; 71045; 72125; 76376; 80048; 80053; 80076; 80179; 80307; 80320; 80329; 81001; 82550; 82805; 83605; 85025; 87086; 90471; 90715; 93005; 96361; 96372; 96374; 96375; 96376; 99285; J2060; J3360; J3486